=== PATIENT | male | born 1980 ===

== ENCOUNTER 2023-06-29 12:55 | Outpatient (AMB) | payer OTHER, SELFPAY ==
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
[2023-06-29 13:00] VITALS: BP 138/88; PULSE 110; O2SAT 98; BMI 42.6
== END 2023-06-29 13:48 | disposition home or self-care (01) ==
PROVIDERS: PCP Nurse Practitioner Family; Visit Provider Nurse Practitioner Family
DX: S32.009A Unspecified fracture of unspecified lumbar vertebra, initial encounter for closed fracture (principal); S30.811A Abrasion of abdominal wall, initial encounter; K66.1 Hemoperitoneum; S22.39XA Fracture of one rib, unspecified side, initial encounter for closed fracture; V86.6 Passenger of special all-terrain or other off-road motor vehicle injured in nontraffic accident
CPT/HCPCS: 99213

== ENCOUNTER 2023-07-27 08:19 | Outpatient (AMB) | payer OTHER, SELFPAY ==
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
[2023-07-27 09:33] VITALS: BP 130/80; PULSE 93; TEMP 36.6; O2SAT 97; BMI 42.0
== END 2023-07-27 10:06 | disposition home or self-care (01) ==
PROVIDERS: PCP Nurse Practitioner Family; Visit Provider Internal Medicine
DX: M54.6 Pain in thoracic spine (principal)
CPT/HCPCS: 99213

== ENCOUNTER 2023-08-11 15:30 | Outpatient (AMB) | payer OTHER, SELFPAY ==
[2023-08-11 15:36] VITALS: BP 142/80; PULSE 97; O2SAT 98; BMI 42.2
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
[2023-08-11 16:02] VITALS: BP 134/84
[2023-08-11 16:06] VITALS: BP 128/80
== END 2023-08-11 16:58 | disposition home or self-care (01) ==
PROVIDERS: PCP Nurse Practitioner Family; Visit Provider Nurse Practitioner Family
DX: S22.39XA Fracture of one rib, unspecified side, initial encounter for closed fracture (principal); K66.1 Hemoperitoneum; S32.009A Unspecified fracture of unspecified lumbar vertebra, initial encounter for closed fracture; S30.811A Abrasion of abdominal wall, initial encounter
CPT/HCPCS: 99213

== ENCOUNTER 2023-10-28 08:28 | Outpatient (REF) | payer OTHER, SELFPAY ==
[2023-10-28 11:15] LABS: MANUAL DIFF FLAG NO
[2023-10-28 11:17] LABS: Appearance Urine Turbid; Color Urine Dark Yellow; Glucose Urine UA Negative (Negative); Leukocyte Esterase Urine Negative (Negative); Nitrite Urine Negative (Negative); PH 5.5 (5.0-9.0); Specific Gravity - Urine 1.025 (1.005-1.025); Urine Blood Negative (Negative); Urine Ketones Trace mg/dL (Negative); Urine Protein Negative (Neg-Trace)
[2023-10-28 12:15] LABS: Alanine Aminotransferase 36 U/L (0-40); Albumin Level 4.2 g/dL (3.5-5.0); Alkaline Phosphatase 110 U/L (39-117); Anion Gap 13 (12-20); Aspartate Amino Transferase 18 U/L (5-37); Bilirubin Total 0.4 mg/dL (0.0-1.0); Blood Urea Nitrogen 12 mg/dL (9-16); Calcium 9.3 mg/dL (8.4-10.2); Carbon Dioxide 27 mmol/L (22-29); Chloride 103 mmol/L (96-108); Cholesterol 180 mg/dL (<200); Estimated Glomerular Filt Rate > 60; Glucose Fasting 186 mg/dL (60-99); HDL Cholesterol 31 mg/dL (>40); LDL Cholesterol Calculated 111 mg/dL (<100); Potassium 4.1 mmol/L (3.3-5.1); Sodium 139 mmol/L (135-145); Total Protein 7.5 g/dL (6.5-8.0); Triglycerides 191 mg/dL (<150)
[2023-10-28 12:24] LABS: TSH reflex Free T4 1.43 uIU/mL (0.32-4.0)
[2023-10-28 15:24] LABS: Basophils Percent Auto 0.6 % (0-2); Eosinophils Absolute Auto 0.1 X10*3/uL (0.0-0.4); Hematocrit 42.7 % (42.0-52.0); Hemoglobin 14.8 g/dl (14.0-18.0); Imm Gran Abs Auto 0.03 X10*3/uL (0.00-0.03); Imm Gran Pct Auto 0.5 % (0.0-0.4); Lymphocytes Absolute Auto 2.3 X10*3/uL (1.2-4.9); Lymphocytes Percent Auto 34.3 % (20-40); Mean Corpuscular HGB Conc 34.7 g/dl (31.0-36.0); Mean Corpuscular Hemoglobin 29.6 pg (27.0-33.0); Mean Corpuscular Volume 85.4 fL (80.0-98.0); Mean Platelet Volume 10.7 fL (9.4-12.4); Monocytes Absolute Auto 0.5 X10*3/uL (0.1-1.2); Monocytes Percent Auto 7.8 % (2-11); Neutrophils Absolute Auto 3.6 x10*3/uL (2.0-8.3); Neutrophils Percent Auto 54.8 % (45-73); Platelet Count 219 X10*3/uL (160-400); Red Cell Distribution Width 12.4 % (11.0-16.0); White Blood Count 6.6 X10*3/uL (4.8-10.8)
== END 2023-10-28 08:29 | disposition home or self-care (01) ==
LOC: HO.HMGCLDS 08:28
PROVIDERS: PCP Nurse Practitioner Family; Visit Provider Nurse Practitioner Family
DX: K66.1 Hemoperitoneum (principal); S32.009A Unspecified fracture of unspecified lumbar vertebra, initial encounter for closed fracture; S30.811A Abrasion of abdominal wall, initial encounter
CPT/HCPCS: 36415; 80053; 80061; 81003; 84443; 85025

== ENCOUNTER 2023-10-29 07:52 | Outpatient (AMB) | payer OTHER, SELFPAY ==
[2023-10-29 07:55] VITALS: BP 120/78; PULSE 96; O2SAT 95; BMI 42.2
--- NOTE | 2023-10-29 07:55 | MHC.PC.OV ---
Vital Signs 10/29/23 07:55 Height 6 ft 1 in Weight 320 lb BMI 42.2 BP 120/78 Blood Pressure Location Lt brachial Position Sitting Pulse 96 Pulse Source Pulse Oximeter Pulse Oximetry (%) 95 Oxygen Delivery Method Room Air Intake Visit Reasons: physical Intake Note: Pt is here today for his PE Allergies No Known Allergies Allergy (Verified 10/29/23 07:55) Medication List - Last Reconciled 10/29/23 by SAUD Grossman amlodipine 10 mg PO DAILY 90 days betamethasone dipropionate 0.05% 1 appl topical DAILY PRN 30 days cyclobenzaprine 10 mg PO BID PRN 10 days irbesartan 150 mg PO DAILY 90 days meloxicam 15 mg PO DAILY PRN 30 days metformin ER 500 mg PO BID 30 days Tobacco use date assessed: 10/29/23 Dental Screening Dental Screen Date: 10/29/23 Did you have a dental visit in the last 12 months?: Yes Did you have a dental problem in the last 6 months where you did not have access to dental care?: Yes Was dental information given to patient?: Patient has dentist HPI physical HPI Details Pt is here for a PE. Labs were already performed. Pt is a newly-diagnosed diabetic, on an ARB. A1C in office today is 8.6. Due for microalbumin, will order. Denies polyuria, polydipsia, and neuropathy. Pt denies any signs and symptoms of hypoglycemia and does know how to correct it. Will start metformin ER 500mg. Will send meter and supplies, educated on bid testing. Will refer to nurse navigator. Due for eye exam, will refer. Refuses all vaccinations. [facility] Medical History Psoriasis Surgical History No pertinent past surgical history Family History Father No problems noted. Mother No problems noted. Social History Housing: House Patient Tobacco Use Status: Former Tobacco user e-Cigarette/Vaping Use: Currently Using Second Hand Smoke Exposure: No service: No Current occupational status: employed Cognitive needs: No Hearing needs: No Vision needs: No Questionnaire PHQ-9 Over the last 2 weeks, how often have you been bothered by any of the following problems? 1. Little interest or pleasure in doing things: not at all 2. Feeling down, depressed, or hopeless: not at all 3. Trouble falling or staying asleep, or sleeping too much: not at all 4. Feeling tired or having little energy: not at all 5. Poor appetite or overeating: not at all 6. Feeling bad about yourself - or that you are a failure or have let yourself or your family down: not at all 7. Trouble concentrating on things, such as reading the newspaper or watching television: not at all 8. Moving or speaking so slowly that other people could have noticed. Or the opposite - being so fidgety or restless that you have been moving around a lot more than usual: not at all 9. Thoughts that you would be better off or of hurting yourself in some way: not at all Total score: 0 Source: Developed by Drs. Gold Brandon, Kristen Blake, Yanick Awan and colleagues, with an educational ronal from [employer]. Thrive Questionnaire Date Thrive assessed: 10/29/23 I am a: Patient What is your living situation today?: I have a steady place to live Within the past 12 months, did the food you bought not last and you didn't have the money to get more?: Never true Within the past 12 months, did you worry whether your food would run out before you got money to buy more?: Never true Do you have trouble paying for medicines?: No Do you have trouble getting transportation to medical appointments?: No Do you have trouble paying your heating and electricity bill?: No Do you have trouble taking care of your child, family member or friend?: No Do you have trouble with day-to-day activities such as bathing, preparing meals, shopping, managing finances, etc.?: No Are you currently unemployed and looking for a job?: No Are you interested in more education?: No THRIVE Score: 0 AUDIT C Alcohol Use Questionnaire (AUDIT-C) 1. How often do you have a drink containing alcohol?: Never Total Score: 0 KINZA-7 AMB Questionnaire KINZA-7 Date KINZA - 7 assessed: 10/29/23 Feeling nervous, anxious, or on edge: 0 = Not at all Not being able to stop or control worryin = Not at all Worrying too much about different things: 0 = Not at all Trouble relaxin = Not at all Being so restless that it is hard to sit still: 0 = Not at all Becoming easily annoyed or irritable: 0 = Not at all Feeling afraid as if something awful might happen: 0 = Not at all Total KINZA-7 score (0-4 normal; 5-9 mild; 10-14 moderate; 15-21 severe): 0 Source: Developed by Drs. Gold Brandon, Kristen Blake, Yanick Awan and colleagues, with an educational ronal from [employer]. Review of Systems Const Denies chills and Denies fever(s) Eyes Denies blurry vision ENT Denies vertigo, Denies dizziness and Denies sore throat Card Denies chest pain at rest, Denies chest pain with activity, Denies diaphoresis, Denies dyspnea and Denies dyspnea on exertion Resp Denies cough, Denies dyspnea, Denies dyspnea on exertion and Denies wheezing GI Denies abdominal pain, Denies melena, Denies hematochezia, Denies constipation, Denies diarrhea and Denies loose stools Denies hematuria Musc Denies numbness and Denies tingling Skin/Breast Denies lesions Neuro Denies vertigo, Denies dizziness, Denies numbness and Denies tingling Psych Denies anxiety, Denies depression, Denies homicidal ideation, Denies suicidal ideation and Denies other (substance abuse) Aller/Immun Denies wheezing Physical exam (Primary Care) Vital Signs: Last Vital Signs Pulse 96 10/29/23 07:55 BP 120/78 10/29/23 07:55 Pulse Ox 95 10/29/23 07:55 Oxygen Delivery Method Room Air 10/29/23 07:55 BMI result Body Mass Index 42.2 Tobacco/Smoking Status: Tobacco use Status Tobacco use date assessed 10/29/23 10/29/23 07:56 Patient Tobacco Use Status Former Tobacco user 10/29/23 08:03 e-Cigarette/Vaping Use Currently Using 10/29/23 08:03 Thrive Assessment: Date of Thrive Assessment Date Thrive assessed 10/29/23 10/29/23 08:06 Const General: cooperative Nutritional Appearance: obese morbidly obese Orientation/consciousness: patient oriented x3 HENMT Head: Yes normal to inspection, Yes normocephalic and Yes atraumatic Ears: TM's normal bilaterally Eyes General: appearance normal, both eyes and all related structures Alignment and Position: alignment normal and position normal Neck Neck: Yes normal visual inspection and Yes no lymphadenopathy Thyroid: Thyroid normal Resp Effort & Inspection: normal respiratory effort Auscultation: clear to auscultation bilaterally Cardio Rate: regular rate Rhythm: regular rhythm Heart sounds: S1 normal heart sound present, S2 normal heart sound present and no murmurs GI Palpation (GI): Soft to palpation and nontender Auscultation: normal bowel sounds Male General Exam: Yes normal external exam Penis: normal penis Scrotum: scrotum normal, testes descended bilaterally and no inguinal hernias Testes: no testicular mass Skin Rashes: no rashes Neuro General: patient oriented x3, moves all extremities, no focal motor deficits and deep tendon reflexes 2+ bilaterally Romberg Test: Negative Extrem Other: bilat feet: + sensation with use of monofilament Psych Appearance: grossly normal Mental Status: mental status grossly normal Speech and movement: Normal speech and movement present Affect: normal affect Attitude: cooperative Thought process: Normal thought process present Thought content: Normal thought content present Insight: Good insight present (Psych) Judgement: Good judgement present (Psych) Results AMB Hemoglobin A1c AMB Hemoglobin A1c 8.6 % Last Edit by Jeanna Liao CMA on 10/29/23 08:35 Assessment and Plan Assessment & Plan (1) Newly diagnosed diabetes: Code(s): E11.9 - Type 2 diabetes mellitus without complications Plan: Microalbumin ordered, referred to nurse navigtor and ophthalmology, metformin started (2) Encounter for routine adult physical exam with abnormal findings: Code(s): Z00.01 - Encounter for general adult medical examination with abnormal findings Plan The patient agreed to the use of a adjunct faculty for medical terminology for this encounter. Scribed for SAUD Kong by Jenniffer Nicholson adjunct faculty for medical terminology, on 10/29/2023 at 08:20 EST. Orders: Orders AMB Hemoglobin A1c Today Z13.9 - Encounter for screening, unspecified Microalbumin, Random (w Creat) Today E11.9 - Type 2 diabetes mellitus without complications Referrals Nurse Navigator Referral E11.9 - Type 2 diabetes mellitus without complications Ophthalmology Referral E11.9 - Type 2 diabetes mellitus without complications Medications: New metformin ER 500 mg PO BID 30 days 60 tabs 3RF calcipotriene 0.005% rub in gently and completely 1 appl topical DAILY 120 grams 0RF metformin ER 500 mg PO BID 30 days 60 tabs 3RF Refilled betamethasone dipropionate 0.05% 1 appl topical DAILY 30 days PRN 45 grams 4RF skin irritation Coding Level of Care Code Est Pt Prev Care 40-64y(76774) Diagnoses Newly diagnosed diabetes E11.9 Encounter for routine adult physical exam with abnormal findings Z00.01
== END 2023-10-29 08:46 | disposition home or self-care (01) ==
PROVIDERS: PCP Nurse Practitioner Family; Visit Provider Nurse Practitioner Family
DX: Z00.01 Encounter for general adult medical examination with abnormal findings (principal); E11.9 Type 2 diabetes mellitus without complications
CPT/HCPCS: 83036; 99213; 99396

== ENCOUNTER 2024-02-18 08:21 | Outpatient (AMB) | payer OTHER, SELFPAY ==
--- NOTE | 2024-02-18 08:24 | MHC.PC.OV ---
Vital Signs 02/18/24 08:29 Height 6 ft 1 in Weight 298 lb BMI 39.3 BP 120/82 Blood Pressure Location Rt brachial Position Sitting Pulse 76 Pulse Source Pulse Oximeter Pulse Oximetry (%) 96 Oxygen Delivery Method Room Air Intake Visit Reasons: 3.5 month follow up Allergies No Known Allergies Allergy (Verified 02/18/24 08:30) Medication List - Last Reconciled 02/18/24 by SAUD Grossman Alcohol Wipes (alcohol swabs) 1 pad topical .BID testing NS amlodipine 10 mg PO DAILY 90 days betamethasone dipropionate 0.05% 1 appl topical DAILY PRN 30 days blood sugar diagnostic (FreeStyle Lite Strips) Test blood sugar twice a day blood-glucose meter (FreeStyle Lite Meter kit) As directed calcipotriene 0.005% 1 appl topical DAILY cyclobenzaprine 10 mg PO BID PRN 10 days irbesartan 150 mg PO DAILY 90 days lancets (FreeStyle Lancets) Test blood sugar twice a day meloxicam 15 mg PO DAILY PRN 30 days metformin ER 500 mg PO DAILY Tobacco use date assessed: 10/29/23 Dental Screening Dental Screen Date: 10/29/23 HPI 3.5 month follow up HPI Details Pt is a diabetic, on an ARB. A1C in office today is 6.1. Due for microalbumin, will order. Denies polyuria, polydipsia, and neuropathy. Pt denies any signs and symptoms of hypoglycemia and does know how to correct it. Pt has been working on his diet. Pt c/o pain to his right achilles region (distal aspect). Will order XR. [facility] Medical History Psoriasis Surgical History No pertinent past surgical history Family History Father No problems noted. Mother No problems noted. Social History Household Members: Spouse Housing: House Patient Tobacco Use Status: Current everyday Tobacco user Tobacco use type: Smokeless Tobacco e-Cigarette/Vaping Use: Currently Using Second Hand Smoke Exposure: No service: No Current occupational status: employed Cognitive needs: No Hearing needs: No Vision needs: No Questionnaire PHQ-9 Over the last 2 weeks, how often have you been bothered by any of the following problems? 55065 - PHQ-9 Billing: Patient declined-do not bill Source: Developed by Drs. Gold Brandon, Yanick Montanez and colleagues, with an educational ronal from [employer]. Thrive Questionnaire Date Thrive assessed: 10/29/23 KINZA-7 AMB Questionnaire KINZA-7 Date KINZA - 7 assessed: 10/29/23 Source: Developed by Drs. Gold Brandon, Kristen Blake, Yanick Awan and colleagues, with an educational ronal from [employer]. KINZA-7 Assessment Billing KINZA-7 Assessment Tool: pt declined-do not bill Review of Systems Const Reports as per HPI Physical exam (Primary Care) Vital Signs: Last Vital Signs Pulse 76 02/18/24 08:29 BP 120/82 02/18/24 08:29 Pulse Ox 96 02/18/24 08:29 Oxygen Delivery Method Room Air 02/18/24 08:29 BMI result Body Mass Index 39.3 Tobacco/Smoking Status: Tobacco use Status Tobacco use date assessed 10/29/23 02/18/24 08:29 Patient Tobacco Use Status Current everyday Tobacco 02/18/24 08:29 Tobacco use type Smokeless Tobacco 02/18/24 08:29 e-Cigarette/Vaping Use Currently Using 02/18/24 08:29 Thrive Assessment: Date of Thrive Assessment Date Thrive assessed 10/29/23 02/18/24 08:29 Const General: cooperative Nutritional Appearance: obese Orientation/consciousness: patient oriented x3 Resp Effort & Inspection: normal respiratory effort Auscultation: clear to auscultation bilaterally Cardio Rate: regular rate Rhythm: regular rhythm Heart sounds: S1 normal heart sound present and S2 normal heart sound present Neuro General: patient oriented x3 Extrem Other: bilat feet: + sensation with use of monofilament, feet intact, right distal achilles region slightly tender with palpation, no erythema, slight bulging Psych Appearance: grossly normal Mental Status: mental status grossly normal Speech and movement: Normal speech and movement present Affect: normal affect Attitude: cooperative Thought process: Normal thought process present Thought content: Normal thought content present Insight: Good insight present (Psych) Judgement: Good judgement present (Psych) Results AMB Hemoglobin A1c AMB Hemoglobin A1c 6.1 % Last Edit by ANTELMO Felix on 02/18/24 08:52 Results Reviewed Results Reviewed: Laboratory Last Values Hgb A1c (Clinic) 6.1 % (4.0-6.0) H 02/18/24 08:38 Assessment and Plan Assessment & Plan (1) Diabetes: Code(s): E11.9 - Type 2 diabetes mellitus without complications Plan: Labs ordered (2) Pain in Achilles tendon: Code(s): M76.60 - Achilles tendinitis, unspecified leg Plan: XR ordered Plan The patient agreed to the use of a medical genetics director for this encounter. Scribed for SAUD Kong by Jenniffer Nicholson medical genetics director, on 02/18/2024 at 08:45 EST. Orders: Orders AMB Hemoglobin A1c Today Z13.9 - Encounter for screening, unspecified TSH reflex Free T4 Today E11.9 - Type 2 diabetes mellitus without complications UA CC w/rflx Micro + Cult Today E11.9 - Type 2 diabetes mellitus without complications Microalbumin, Random (w Creat) Today E11.9 - Type 2 diabetes mellitus without complications Complete Blood Count Auto Diff Today E11.9 - Type 2 diabetes mellitus without complications Comprehensive [place]. Panel Fast Today E11.9 - Type 2 diabetes mellitus without complications Lipid Panel Today E11.9 - Type 2 diabetes mellitus without complications XR calcaneus RT min 2V Today M76.60 - Achilles tendinitis, unspecified leg Coding Level of Care Code Est Pt Level 3 (50859) Diagnoses Diabetes E11.9 Pain in Achilles tendon M76.60
[2024-02-18 08:29] VITALS: BP 120/82; PULSE 76; O2SAT 96; BMI 39.3
== END 2024-02-18 09:07 | disposition home or self-care (01) ==
PROVIDERS: PCP Nurse Practitioner Family; Visit Provider Nurse Practitioner Family
DX: E11.9 Type 2 diabetes mellitus without complications (principal); M76.60 Achilles tendinitis, unspecified leg; Z13.9 Encounter for screening, unspecified
CPT/HCPCS: 83036; 99213

== ENCOUNTER 2024-02-18 08:58 | Outpatient (REF) | payer OTHER, SELFPAY ==
--- NOTE | ~2024-02-18 | XR_ITS ---
EXAMINATION: XR CALCANEUS, RIGHT CLINICAL INFORMATION: Achilles tendinitis of. COMPARISON: None available. TECHNIQUE: Lateral and axial views of the right calcaneus were obtained. FINDINGS: There is a prominent moderate calcaneal spur. There is an adjacent area of ossification measuring up to 7 mm craniocaudal and 3.3 mm AP with some adjacent calcification. This is in the region of the distal Achilles tendon. There is soft tissue prominence in this area. Remaining bones joints and soft tissues are unremarkable. XR/XR calcaneus RT min 2V IMPRESSION: 1. Prominent calcaneal spur. 2. Soft tissue prominence in the region of the distal Achilles tendon with adjacent calcification. This could reflect Achilles tendinitis with without associated avulsive type fracture of the calcaneal spur with possible tearing of the tendon. If felt clinically necessary consider further evaluation characterization with MRI. 3. No acute abnormality.
== END 2024-02-18 08:59 | disposition home or self-care (01) ==
LOC: HO.HMGCX 08:58
PROVIDERS: PCP Nurse Practitioner Family; Visit Provider Nurse Practitioner Family
DX: M76.61 Achilles tendinitis, right leg (principal)
CPT/HCPCS: 73650

== ENCOUNTER 2024-04-06 16:36 | Outpatient (REF) | payer OTHER, SELFPAY ==
--- NOTE | ~2024-04-06 | MR_ITS ---
EXAMINATION: MR FOOT WITHOUT CONTRAST, RIGHT CLINICAL INFORMATION: Achilles tendinitis. COMPARISON: Radiographs 02/18/2024. TECHNIQUE: MRI without contrast is performed on the right hindfoot. FINDINGS: Mild chronic Achilles tendinopathy. There is a large enthesophyte with marrow edema and a small chronic ossification posterior to the distal tendon. There is a small partial tear of the tendon at the lateral aspect of the calcaneal insertion measuring 1.2 cm medial to lateral, up to 4 mm in AP and superior to inferior dimension. Reactive marrow edema and mild retrocalcaneal bursitis. Surrounding soft tissue edema/peritendinitis. The posterior tibialis tendon, peroneal tendons, flexor and extensor tendons appear intact. There is a 2.3 cm elongated fluid collection/ganglion between the FHL and FDL tendons proximal to the knot of Isidro adjacent to the medial plantar nerve. Ankle ligaments appear intact. No ankle joint effusion. There is a small focus of subchondral marrow edema at the lateral talar dome. Plantar fascia is intact. MR/MR foot RT wo con IMPRESSION: 1. Mild chronic Achilles tendinopathy with a small partial tear at the lateral aspect of the calcaneal insertion. There is a large enthesophyte with reactive marrow edema and mild retrocalcaneal bursitis. 2. There is a 2.3 cm ganglion between the FHL and FDL tendons beneath the sustentaculum talus. 3. Small focus of subchondral marrow edema at the lateral talar dome. No ankle joint effusion.
== END 2024-04-06 16:37 | disposition home or self-care (01) ==
LOC: HO.MRI 16:36
PROVIDERS: PCP Nurse Practitioner Family; Visit Provider Nurse Practitioner Family
DX: M76.61 Achilles tendinitis, right leg (principal); R93.89 Abnormal findings on diagnostic imaging of other specified body structures
CPT/HCPCS: 73718

== ENCOUNTER 2024-08-15 07:52 | Outpatient (AMB) | payer OTHER, SELFPAY ==
[2024-08-15 08:04] VITALS: BP 132/80; PULSE 78; O2SAT 98; BMI 39.4
--- NOTE | 2024-08-15 08:04 | MHC.PC.OV ---
Vital Signs 08/15/24 08:04 Height 6 ft 1 in Weight 299 lb BMI 39.4 BP 132/80 Blood Pressure Location Rt brachial Position Sitting Pulse 78 Pulse Source Pulse Oximeter Pulse Oximetry (%) 98 Intake Visit Reasons: 6 mon f/u DM Intake Note: pt is here for DM [employer] Required: No Allergies No Known Allergies Allergy (Verified 08/15/24 09:02) Medication List - Last Reconciled 08/15/24 by LESLIE Grossman Alcohol Wipes (alcohol swabs) 1 pad topical .BID testing NS amlodipine 10 mg PO DAILY 90 days betamethasone dipropionate 0.05% 1 appl topical DAILY PRN 30 days blood sugar diagnostic (FreeStyle Lite Strips) Test blood sugar twice a day blood-glucose meter (FreeStyle Lite Meter kit) As directed calcipotriene 0.005% 1 appl topical DAILY cyclobenzaprine 10 mg PO BID PRN 10 days irbesartan 150 mg PO DAILY 90 days lancets (FreeStyle Lancets) Test blood sugar twice a day meloxicam 15 mg PO DAILY PRN 90 days metformin ER 500 mg PO DAILY Tobacco use date assessed: 10/29/23 Dental Screening Dental Screen Date: 10/29/23 HPI 6 mon f/u DM HPI Details Pt is a diabetic, on an ARB. A1C in office today is 6.7. Due for microalbumin, will order. Denies polyuria, polydipsia, and neuropathy. Pt denies any signs and symptoms of hypoglycemia and does know how to correct it. Eye exam is not up to date, will resubmit this. Encouraged pt to have labs drawn. Refuses vaccines. [facility] Medical History Psoriasis Surgical History No pertinent past surgical history Family History Father No problems noted. Mother No problems noted. Social History Household Members: Spouse Housing: House Patient Tobacco Use Status: Current everyday Tobacco user Tobacco use type: Smokeless Tobacco e-Cigarette/Vaping Use: Currently Using Second Hand Smoke Exposure: No service: No Current occupational status: employed Cognitive needs: No Hearing needs: No Vision needs: No Questionnaire PHQ-9 Over the last 2 weeks, how often have you been bothered by any of the following problems? 1. Little interest or pleasure in doing things: not at all 3. Trouble falling or staying asleep, or sleeping too much: not at all 5. Poor appetite or overeating: not at all 7. Trouble concentrating on things, such as reading the newspaper or watching television: not at all 9. Thoughts that you would be better off or of hurting yourself in some way: not at all Depression Screening Interpretation: Negative Depression Screening Done: Yes Source: Developed by Drs. Gold Brandon, Kristen Blake, Yanick Awan and colleagues, with an educational ronal from [employer]. Thrive Questionnaire Date Thrive assessed: 08/12/24 I am a: Patient What is your living situation today?: I choose not to answer this question Within the past 12 months, did the food you bought not last and you didn't have the money to get more?: I choose not to answer this question Within the past 12 months, did you worry whether your food would run out before you got money to buy more?: I choose not to answer this question Do you have trouble paying for medicines?: I choose not to answer this question Do you have trouble getting transportation to medical appointments?: I choose not to answer this question Do you have trouble paying your heating and electricity bill?: I choose not to answer this question Do you have trouble taking care of your child, family member or friend?: I choose not to answer this question Do you have trouble with day-to-day activities such as bathing, preparing meals, shopping, managing finances, etc.?: I choose not to answer this question Are you currently unemployed and looking for a job?: Yes Are you interested in more education?: No Please select the resources that you would like help with: None Currently or been in a relationship where the following occur: No concerns reported THRIVE Score: 0 AUDIT C Alcohol Use Questionnaire (AUDIT-C) 1. How often do you have a drink containing alcohol?: Never Total Score: 0 KINZA-7 AMB Questionnaire KINZA-7 Date KINZA - 7 assessed: 10/29/23 Feeling nervous, anxious, or on edge: 0 = Not at all Not being able to stop or control worryin = Not at all Worrying too much about different things: 0 = Not at all Trouble relaxin = Not at all Being so restless that it is hard to sit still: 0 = Not at all Becoming easily annoyed or irritable: 0 = Not at all Feeling afraid as if something awful might happen: 0 = Not at all Total KINZA-7 score (0-4 normal; 5-9 mild; 10-14 moderate; 15-21 severe): 0 Source: Developed by Drs. Gold Brandon, Kristen Blake, Yanick Awan and colleagues, with an educational ronal from [employer]. KINZA-7 Assessment Billing KINZA-7 Assessment Tool: KINZA-7 Assessment 87863 Review of Systems Const Reports as per HPI Physical exam (Primary Care) Vital Signs: Last Vital Signs Pulse 78 08/15/24 08:04 BP 132/80 08/15/24 08:04 Pulse Ox 98 08/15/24 08:04 BMI result Body Mass Index 39.4 Tobacco/Smoking Status: Tobacco use Status Tobacco use date assessed 10/29/23 08/15/24 08:05 Patient Tobacco Use Status Current everyday Tobacco 08/15/24 08:05 Tobacco use type Smokeless Tobacco 08/15/24 08:05 e-Cigarette/Vaping Use Currently Using 08/15/24 08:05 Depression Screening Interpretation: Negative Thrive Assessment: Date of Thrive Assessment Date Thrive assessed 08/12/24 08/15/24 08:05 Currently or been in a relationship where the following occur: No concerns reported Const General: cooperative Nutritional Appearance: obese Orientation/consciousness: patient oriented x3 Resp Effort & Inspection: normal respiratory effort Auscultation: clear to auscultation bilaterally Cardio Rate: regular rate Rhythm: regular rhythm Heart sounds: S1 normal heart sound present and S2 normal heart sound present Neuro General: patient oriented x3 Extrem Other: bilat feet: + sensation with use of monofilament, feet intact Psych Appearance: grossly normal Mental Status: mental status grossly normal Speech and movement: Normal speech and movement present Affect: normal affect Attitude: cooperative Thought process: Normal thought process present Thought content: Normal thought content present Insight: Good insight present (Psych) Judgement: Good judgement present (Psych) Results AMB Hemoglobin A1c AMB Hemoglobin A1c 6.7 % Last Edit by Merlin Noguera CMA on 08/15/24 08:24 Results Reviewed Results Reviewed: Laboratory Last Values Hgb A1c (Clinic) 6.7 % (4.0-6.0) H 08/15/24 08:23 Coding Level of Care Code Est Pt Level 3 (86372) Diagnoses Diabetes E11.9 Additional Codes KINZA-7 Assessment Billing - KINZA-7 Assessment Tool: KINZA-7 Assessment 44092 ([id number]) Assessment & Plan Assessment & Plan (1) Diabetes: Code(s): E11.9 - Type 2 diabetes mellitus without complications Category: Medical Plan: cont same routine, though tweak diet a little more Plan The patient agreed to the use of a medical assistant prn for this encounter. Scribed for SAUD Kong by Jenniffer Nicholson medical assistant prn, on 08/15/2024 at 08:20 EST. Orders: Orders AMB Hemoglobin A1c Today E11.9 - Type 2 diabetes mellitus without complications
== END 2024-08-15 09:17 | disposition home or self-care (01) ==
PROVIDERS: PCP Nurse Practitioner Family; Visit Provider Nurse Practitioner Family
DX: E11.9 Type 2 diabetes mellitus without complications (principal)

== ENCOUNTER → 2024-08-15 07:52 | Outpatient (BNVA) | payer OTHER, SELFPAY | PROVIDERS: PCP Nurse Practitioner Family; Visit Provider Nurse Practitioner Family ==

== ENCOUNTER 2024-08-15 08:38 | Outpatient (REF) | payer OTHER, SELFPAY ==
[2024-08-15 10:33] LABS: Anion Gap 9 (12-20); Carbon Dioxide 26 mmol/L (22-29); Chloride 108 mmol/L (96-108); Potassium 4.4 mmol/L (3.3-5.1); Sodium 139 mmol/L (135-145)
== END 2024-08-15 08:39 | disposition home or self-care (01) ==
LOC: HO.HMGCLDS 08:38
PROVIDERS: PCP Nurse Practitioner Family; Visit Provider Orthopaedic Surgery Foot and Ankle Surgery
DX: Z01.89 Encounter for other specified special examinations (principal); Z13.1 Encounter for screening for diabetes mellitus
CPT/HCPCS: 36415; 80051; 83036; 96127

== ENCOUNTER → 2024-08-15 09:36 | Outpatient (REF) | payer OTHER, SELFPAY ==
--- NOTE | 2024-08-15 09:47 | ECG_ITS ---
Test Reason : PRE OP Blood Pressure : / mmHG Vent. Rate : 075 BPM Atrial Rate : 075 BPM P-R Int : 162 ms QRS Dur : 098 ms QT Int : 386 ms P-R-T Axes : 072 039 031 degrees QTc Int : 431 ms Normal sinus rhythm Normal ECG No previous ECGs available Referred By: Paul Caceres Electronically Signed By:Marcos Sanchez
== END ==
LOC: HO.CARD 09:36
PROVIDERS: PCP Nurse Practitioner Family; Visit Provider Orthopaedic Surgery Foot and Ankle Surgery
DX: Z01.89 Encounter for other specified special examinations (principal)
CPT/HCPCS: 93005

== ENCOUNTER → 2024-08-15 09:47 | Outpatient (BNV) | payer OTHER, SELFPAY | PROVIDERS: PCP Nurse Practitioner Family; Visit Provider Internal Medicine Cardiovascular Disease | DX: E11.9 Type 2 diabetes mellitus without complications (principal) | CPT/HCPCS: 93010 ==

== ENCOUNTER → 2024-10-21 09:37 | Outpatient (BNVA) | payer SELFPAY | PROVIDERS: PCP Nurse Practitioner Family; Visit Provider Physician Assistant | DX: Z02.79 Encounter for issue of other medical certificate (principal) ==

== ENCOUNTER 2025-01-26 14:09 | Outpatient (REF) | payer OTHER, SELFPAY ==
--- NOTE | ~2025-01-26 | XR_ITS ---
CLINICAL HISTORY: M54.2 - Cervicalgia 3 views cervical spine Comparison: None Findings: Normal vertebral body alignment. No acute fractures or dislocation. Minimal degenerative change at C5-C6. No prevertebral soft tissue swelling. IMPRESSION: No acute findings. This document has been electronically signed by: Giulia Sparks MD on 01/30/2025 14:46:20
--- OUTSIDE RECORDS SUMMARY | 2025-01-26 17:37 | XMS_ITS | Continuity of Care Document ---
Author Organization [facility] Address [address] [place] [address] Phone [phone] Social History Type Date Description Comments Sex Unknown Medical Devices Description No Information Available Encounters Description No Information Available Assessments Description No Information Available Plan of Treatment No Information Available Functional Status Description No Information Available Mental Status Description No Information Available Referrals Description No Information Available
== END 2025-01-26 14:10 | disposition home or self-care (01) ==
LOC: HO.HMGCX 14:09
PROVIDERS: PCP Nurse Practitioner Family; Visit Provider Nurse Practitioner Family
DX: M54.2 Cervicalgia (principal); E11.9 Type 2 diabetes mellitus without complications; L91.8 Other hypertrophic disorders of the skin
CPT/HCPCS: 72040; 83036; 96127

== ENCOUNTER 2025-01-26 14:09 | Outpatient (AMB) | payer OTHER, SELFPAY ==
--- NOTE | 2025-01-26 14:22 | A.OFFPC_ITS ---
Vital Signs 01/26/25 14:23 Height 6 ft 1 in Weight 321 lb BMI 42.3 BP 136/84 Blood Pressure Location Rt brachial Position Sitting Pulse 91 Pulse Source Pulse Oximeter Pulse Oximetry (%) 95 Oxygen Delivery Method Room Air Intake Visit Reasons: migraine Allergies No Known Allergies Allergy (Verified 01/26/25 15:03) Medication List - Last Reconciled 01/26/25 by Jered Julian [employer]- Alcohol Wipes (alcohol swabs) 1 pad topical .BID testing NS amlodipine 10 mg PO DAILY 90 days betamethasone dipropionate 0.05% 1 appl topical DAILY PRN 30 days blood sugar diagnostic (FreeStyle Lite Strips) Test blood sugar twice a day blood-glucose meter (FreeStyle Lite Meter kit) As directed calcipotriene 0.005% 1 appl topical DAILY diclofenac sodium 75 mg PO BID PRN 30 days irbesartan 150 mg PO DAILY 90 days lancets (FreeStyle Lancets) Test blood sugar twice a day tirzepatide (Mounjaro) 2.5 mg (0.5 mL) subcut QWEEK tizanidine 4 mg PO BID PRN 30 days Tobacco use date assessed: 01/26/25 Dental Screening Dental Screen Date: 01/26/25 Did you have a dental visit in the last 12 months?: Yes Did you have a dental problem in the last 6 months where you did not have access to dental care?: No Was dental information given to patient?: Patient has dentist HPI migraine HPI Details Chief Complaint Follow-up for diabetes management and onset of neck pain. History of Present Illness The patient is a 44-year-old male presenting for a follow-up on his Type 2 Diabetes Mellitus and to discuss recent neck pain. He reports the onset of neck pain about one week ago, initially triggered during driving. This pain has disrupted his sleep; however, he notes some improvement today. There are no associated symptoms such as fever, chills, blurred vision, nausea, or vomiting. His diabetes management is notable for an A1c of 7.3 and a poor tolerance to metformin. Lastly, multiple skin tags to bilat axillas. Reports bleeding and chaffing causing constant irritation. WIll refer to derm for removal Social History Health Maintenance - Hemoglobin A1c of 7.3% Review of Systems - Neurological: Denies fever, chills, bl urred vision, nausea, and vomiting. Physical Exam General: Cooperative, healthy appearing, comfortable, no acute distress and well developed, obese Orientation: Patient oriented x3 Limitations: No limitations Head: Normal to inspection Ears: Hearing grossly normal bilaterally Nose: Normal external nose present Face and sinus: Normal facial exam Eyes: Appearance normal, both eyes and all related structures Neck: Normal visual inspection and Yes full ROM, some discomfort to upper cervical spine radiating to occipital region, no real tenderness with palpation. Neg spurlings Respiratory: Normal respiratory effort and able to speak in complete sentences. Clear to auscultation bilaterally Cardiovascular: Regular rate and rhythm. Normal S1 and S2 GI: Normal to inspection. Soft to palpation and nontender Skin: No rashes or lesions noted Neuro: Patient oriented x3, Negative Kernig's and Brudzinski's sign Extremities: Normal to inspection, feet intact with positive sensation using monofilament Results - Labs: Hemoglobin A1c of 7.3% Plan For the management of Type 2 Diabetes Mellitus, I will start the patient on a GLP-1 receptor agonist, Mounjaro, given the suboptimal control with metformin and known intolerance. This should enhance his glycemic control with additional benefits on weight management. Regarding his neck pain, I intend to manage it with anti-inflammatories and muscle relaxants to improve comfort and sleep. A cervical X-ray will be conducted to investigate the pain's etiology. Given the negative findings on neurological examination, immediate serious concerns are mitigated, but I will follow up to assess effectiveness and determine any further action. Discussion Notes I discussed with the patient the current state of his diabetes management, including the A1c result of 7.3%, and the decision to introduce Mounjaro given metformin intolerance, highlighting its benefits and potential weight loss. I elaborated on the approach to his neck pain, including the introduction of symptomatic relief through medication and the logistics of obtaining a cervical spine X-ray for further assessment. We covered the implications of the negative Spurling's, Kernig's, and Brudzinski's tests and the anticipated follow-up arrangements. Patient Instructions - Begin taking the prescribed GLP-1 agon ist, Mounjaro. - Take the anti-inflammatory and muscle relaxer as directed for neck pain relief. - Await instructions for your cervical s pine X-ray appointment. - Follow up as directed for reassessment of diabetes management and neck pain. - Report any new symptoms or adverse marky ctions to medications promptly. [facility] Medical History Achilles tendinosis of right ankle Psoriasis Surgical History H/O Achilles tendon repair No pertinent past surgical history Family History Father No problems noted. Mother No problems noted. Social History Household Members: Spouse Housing: House Patient Tobacco Use Status: Current everyday Tobacco user Tobacco use type: Smokeless Tobacco e-Cigarette/Vaping Use: Currently Using Second Hand Smoke Exposure: No service: No Current occupational status: employed Cognitive needs: No Hearing needs: No Vision needs: No Questionnaire PHQ-9 Over the last 2 weeks, how often have you been bothered by any of the following problems? 1. Little interest or pleasure in doing things: not at all 2. Feeling down, depressed, or hopeless: not at all 3. Trouble falling or staying asleep, or sleeping too much: not at all 4. Feeling tired or having little energy: not at all 5. Poor appetite or overeating: not at all 6. Feeling bad about yourself - or that you are a failure or have let yourself or your family down: not at all 7. Trouble concentrating on things, such as reading the newspaper or watching television: not at all 8. Moving or speaking so slowly that other people could have noticed. Or the opposite - being so fidgety or restless that you have been moving around a lot more than usual: not at all 9. Thoughts that you would be better off or of hurting yourself in some way: not at all Total score: 0 Depression Screening Interpretation: Negative Depression Screening Done: Yes 77515 - PHQ-9 Billing: Yes Source: Developed by Drs. Gold Brandon, Kristen Blake, Yanick Awan and colleagues, with an educational ronal from [employer]. Thrive Questionnaire Date Thrive assessed: 01/26/25 I am a: Patient What is your living situation today?: I have a steady place to live Within the past 12 months, did the food you bought not last and you didn't have the money to get more?: Never true Within the past 12 months, did you worry whether your food would run out before you got money to buy more?: Never true Do you have trouble paying for medicines?: No Do you have trouble getting transportation to medical appointments?: No Do you have trouble paying your heating and electricity bill?: No Do you have trouble taking care of your child, family member or friend?: No Do you have trouble with day-to-day activities such as bathing, preparing meals, shopping, managing finances, etc.?: No Are you currently unemployed and looking for a job?: Yes Are you interested in more education?: No Please select the resources that you would like help with: None Currently or been in a relationship where the following occur: No concerns reported THRIVE Score: 0 AUDIT C Alcohol Use Questionnaire (AUDIT-C) 1. How often do you have a drink containing alcohol?: Never 3. How often do you have six or more drinks on one occasion?: Never Total Score: 0 Score Reviewed/Action Taken: Yes KINZA-7 AMB Questionnaire KINZA-7 Date KINZA - 7 assessed: 01/26/25 Feeling nervous, anxious, or on edge: 0 = Not at all Not being able to stop or control worryin = Not at all Worrying too much about different things: 0 = Not at all Trouble relaxin = Not at all Being so restless that it is hard to sit still: 0 = Not at all Becoming easily annoyed or irritable: 0 = Not at all Feeling afraid as if something awful might happen: 0 = Not at all Total KINZA-7 score (0-4 normal; 5-9 mild; 10-14 moderate; 15-21 severe): 0 Source: Developed by Drs. Gold Brandon, Kristen Blake, Yanick Awan and colleagues, with an educational ronal from [employer]. KINZA-7 Assessment Billing KINZA-7 Assessment Tool: KINZA-7 Assessment 57706 Physical exam (Primary Care) Vital Signs: Last Vital Signs Pulse 91 01/26/25 14:23 BP 136/84 01/26/25 14:23 Pulse Ox 95 04/24/25 14:23 Oxygen Delivery Method Room Air 01/26/25 14:23 BMI result Body Mass Index 42.3 Tobacco/Smoking Status: Tobacco use Status Tobacco use date assessed 01/26/25 01/26/25 14:26 Patient Tobacco Use Status Current everyday Tobacco 01/26/25 14:25 Tobacco use type Smokeless Tobacco 01/26/25 14:25 e-Cigarette/Vaping Use Currently Using 01/26/25 14:25 PHQ-9: PHQ-9 Score PHQ-9: Total score 0 01/26/25 14:26 Depression Screening Interpretation: Negative Thrive Assessment: Date of Thrive Assessment Date Thrive assessed 01/26/25 01/26/25 14:26 Currently or been in a relationship where the following occur: No concerns reported Results AMB Hemoglobin A1c AMB Hemoglobin A1c 7.4 % Last Edit by Evy Friedman CMA on 01/26/25 14:41 Results Reviewed Results Reviewed: Laboratory Last Values Hgb A1c (Clinic) 7.4 % (4.0-6.0) H 01/26/25 14:40 Coding Level of Care Code Est Pt Level 3 (48986) Diagnoses Cervical pain (neck) M54.2 Skin tags, multiple acquired L91.8 Diabetes E11.9 Additional Codes KINZA-7 Assessment Billing - KINZA-7 Assessment Tool: KINZA-7 Assessment 49640 ([id number]) PHQ-9 - 52032 - PHQ-9 Billing: Yes ([id number]) Assessment & Plan Assessment & Plan (1) Cervical pain (neck): Code(s): M54.2 - Cervicalgia Category: Medical (2) Skin tags, multiple acquired: Code(s): L91.8 - Other hypertrophic disorders of the skin Category: Medical (3) Diabetes: Code(s): E11.9 - Type 2 diabetes mellitus without complications Category: Medical Plan . Orders: Orders XR cervical spine 2V Today M54.2 - Cervicalgia Complete Blood Count Auto Diff Today E11.9 - Type 2 diabetes mellitus without complications UA CC w/rflx Micro + Cult Today E11.9 - Type 2 diabetes mellitus without complications AMB Hemoglobin A1c Today E11.9 - Type 2 diabetes mellitus without complications Comprehensive [place]. Panel Fast Today E11.9 - Type 2 diabetes mellitus without complications TSH reflex Free T4 Today E11.9 - Type 2 diabetes mellitus without complications Lipid Panel Today E11.9 - Type 2 diabetes mellitus without complications Microalbumin, Random (w Creat) Today E11.9 - Type 2 diabetes mellitus without complications Referrals Dermatology Referral L91.8 - Other hypertrophic disorders of the skin Medications: New tirzepatide (Mounjaro) for 4 weeks 2.5 mg (0.5 mL) subcut QWEEK 2 mL 0RF tizanidine 4 mg PO BID 30 days PRN 60 caps 0RF muscle spasticity diclofenac sodium 75 mg PO BID 30 days PRN 60 tabs 0RF pain Discontinued cyclobenzaprine Discontinued Reason: Doctor's Order 10 mg PO BID 10 days PRN 20 tabs 0RF muscle spasm metformin ER Discontinued Reason: Patient Refused 500 mg PO DAILY 90 tabs 1RF meloxicam Discontinued Reason: Doctor's Order 15 mg PO DAILY 90 days PRN 90 tabs 0RF pain
[2025-01-26 14:23] VITALS: BP 136/84; PULSE 91; O2SAT 95; BMI 42.3
--- OUTSIDE RECORDS SUMMARY | 2025-01-26 16:38 | XMS_ITS | Continuity of Care Document ---
Author Organization [facility] Address [address] [place] [address] Phone [phone] Social History Type Date Description Comments Sex Unknown Medical Devices Description No Information Available Encounters Description No Information Available Assessments Description No Information Available Plan of Treatment No Information Available Functional Status Description No Information Available Mental Status Description No Information Available Referrals Description No Information Available
== END 2025-01-26 15:14 | disposition home or self-care (01) ==
LOC: HO.HMCC 14:09
PROVIDERS: PCP Nurse Practitioner Family; Visit Provider Nurse Practitioner Family
DX: M54.2 Cervicalgia (principal); L91.8 Other hypertrophic disorders of the skin; E11.9 Type 2 diabetes mellitus without complications

== ENCOUNTER → 2025-01-26 15:01 | Outpatient (BNV) | payer OTHER, SELFPAY | PROVIDERS: PCP Nurse Practitioner Family; Visit Provider Radiology Diagnostic Radiology | DX: M54.2 Cervicalgia (principal) | CPT/HCPCS: 72040 ==

== ENCOUNTER 2025-02-07 12:29 | Emergency (ER) | payer OTHER, SELFPAY ==
--- NOTE | ~2025-02-07 | CT_ITS ---
EXAMINATION: CT ANGIOGRAM HEAD AND NECK CLINICAL INFORMATION: Headache x3 weeks. Blurry vision. COMPARISON: Noncontrast head CT earlier same day at 1:10 PM. TECHNIQUE: Noncontrast axial imaging of the head was performed. This was followed by test bolus sequences and head and neck intravenous bolus administration 70 mL of Omnipaque 350. Helical imaging was performed in the axial plane from the aortic arch to the skull vertex. The data was processed at the mechatronics technologist's workstation for generation of MIP sequences. Angled MIPs and volume rendered reformatted images were also generated at an offline 3D workstation. Stenoses are assessed in accordance with NASCET criteria unless otherwise indicated. This CT examination was performed using dose optimization techniques as appropriate, variously including the following: *Automated exposure control *Adjustment of mA and/or kV according to patient size (this includes techniques or standardized protocols for targeted exams where dose is matched to indication/reason for exam; i.e. extremities or head) *Use of iterative reconstruction technique FINDINGS: NONCONTRAST HEAD CT: There is no evidence of intracranial hemorrhage or extra-axial fluid collection. There is no mass effect, or edema. No CT evidence of acute territorial infarct. Ventricles, sulci, and cisterns are normal in size and configuration for patient age. No hydrocephalus. No midline shift. No significant white matter abnormalities. Globes and orbital contents image normally. No extracranial soft tissue abnormalities. The paranasal sinuses, mastoid air cells, and tympanic cavities are normally aerated. No suspicious bony abnormalities. NECK CTA: -AORTIC ARCH: Normal in caliber. Mild atheromatous calcification. Three-vessel branching pattern. -GREAT VESSEL ORIGINS: Widely patent. No stenosis. -RIGHT COMMON CAROTID ARTERY: Normal in course and caliber to the level of the bifurcation. -CERVICAL RIGHT INTERNAL CAROTID ARTERY: Normal opacification without focal stenosis or occlusion. -LEFT COMMON CAROTID ARTERY: Normal in course and caliber to the level of the bifurcation. -CERVICAL LEFT INTERNAL CAROTID ARTERY: Normal opacification without focal stenosis or occlusion. -CERVICAL RIGHT VERTEBRAL ARTERY: Codominant. Normal in course and caliber into the skull base. -CERVICAL LEFT VERTEBRAL ARTERY: Normal in course and caliber into the skull base. OTHER, SOFT TISSUES: -No lymphadenopathy or mass. No abnormal fluid collection or soft tissue swelling. -Normal thyroid. -Imaged superior mediastinal structures normal. -Imaged lung apices clear. CTA OF THE BRAIN: -INTRACRANIAL INTERNAL CAROTID ARTERIES: No focal stenosis or occlusion. -RIGHT ANTERIOR CEREBRAL ARTERY: Normal A1 segment. Azygos A2/A3 segments. Normal arborization of the distal segments. -LEFT ANTERIOR CEREBRAL ARTERY: Normal A1 segment.. Normal arborization of the distal segments. -ANTERIOR COMMUNICATING ARTERY: Normal. -RIGHT MIDDLE CEREBRAL ARTERY: Normal M1 segment of the MCA without focal stenosis or occlusion. Normal arborization of the distal segments. -LEFT MIDDLE CEREBRAL ARTERY: Normal M1 segment of the MCA without focal stenosis or occlusion. Normal arborization of the distal segments. -RIGHT VERTEBRAL ARTERY V4: Normal in course and caliber. -LEFT VERTEBRAL ARTERY V4: Normal in course and caliber. -BASILAR ARTERY: Normal without focal stenosis or occlusion. Normal appearance of the proximal superior cerebellar arteries. Normal basilar tip. -RIGHT POSTERIOR CEREBRAL ARTERY: Normal P1 segment. Normal opacification of the distal CONTAINERS SALES REPRESENTATIVE segments. -LEFT POSTERIOR CEREBRAL ARTERY: Normal P1 segment. Normal opacification of the distal CONTAINERS SALES REPRESENTATIVE segments. -POSTERIOR COMMUNICATING ARTERIES: Right is well seen. The left is diminutive but present. Normal opacification of the superior sagittal, straight, transverse, and sigmoid sinuses. No venous thrombosis. No space-occupying hemorrhage or definite evolving infarct. CT/CT angio head neck IMPRESSION: NONCONTRAST HEAD CT: 1. No intracranial hemorrhage or mass effect. No CT evidence of acute territorial infarct. CTA NECK: 1. No evidence of significant stenosis, occlusion, dissection, or aneurysm of the major cervical arterial vasculature. CTA HEAD: 1. No evidence of significant stenosis, occlusion, dissection, or aneurysm of the major intracranial arterial vasculature. 2. Patent major cortical and dural venous sinuses. Electronically signed by: Abrahan Fuchs MD 02/07/2025 04:42 PM EDT
--- NOTE | ~2025-02-07 | CT_ITS ---
EXAMINATION: CT HEAD WITHOUT IV CONTRAST HISTORY: headache, blurry vision. TECHNIQUE: Unenhanced helical CT of the head was performed per standard departmental protocol. Coronal and sagittal reformats of the head were also evaluated. One or more of the following techniques was used for dose reduction: Automated exposure control, adjustment of the mA and/or kV according to patient size, use of iterative reconstruction technique. DLP: 949 mGy-cm COMPARISON: There are no prior studies for comparison. FINDINGS: BRAIN: The brain parenchyma is unremarkable. There is normal bullock/white differentiation. The ventricular system is normal in size and configuration. There is no mass effect or midline shift. No intra- or extra-axial fluid collections are identified. SINUSES: The visualized paranasal sinuses are clear. The mastoid air cells and middle ear cavities are well pneumatized. ORBITS: The visualized orbits are unremarkable. BONES/SOFT TISSUES: The extracranial soft tissues are unremarkable. The calvarium is intact. No suspicious lytic or sclerotic lesions. CT/CT head/brain wo IV con IMPRESSION: Unremarkable unenhanced head CT. Electronically signed by: Gold Welch MD 02/07/2025 01:36 PM EDT
--- NOTE | ~2025-02-07 | CT_ITS ---
EXAMINATION: CT CERVICAL SPINE WITHOUT IV CONTRAST HISTORY: posterior neck pain. TECHNIQUE: Helical CT of the cervical spine was performed per standard departmental protocol. Coronal and sagittal reformatted images were also evaluated. One or more of the following techniques was used for dose reduction: Automated exposure control, adjustment of the mA and/or kV according to patient size, use of iterative reconstruction technique. DLP: 718 mGy-cm COMPARISON: There are no prior studies for comparison. FINDINGS: CERVICAL SPINE: Osseous mineralization is normal. The vertebral bodies maintain normal height and alignment without evidence of fracture or subluxation. There is mild degenerative disc disease at the C5-6 and C6-7 levels with anterior osteophyte formation. Evaluation for disc pathology is limited by lack of intrathecal contrast material. BRAIN: The visualized portion of the brain is unremarkable. SINUSES: The visualized paranasal sinuses, mastoid air cells and middle ear cavities are unremarkable. LUNG APICES: The visualized lung apices are clear. SOFT TISSUES: The visualized paraspinal soft tissues are unremarkable. CT/CT cervical spine wo IV con IMPRESSION: No evidence of fracture or malalignment of the cervical spine. Electronically signed by: Gold Welch MD 02/07/2025 01:40 PM EDT
[2025-02-07 12:45] VITALS: BP 167/109; PULSE 92; RESP 20; TEMP 36.9; O2SAT 98; BMI 42.0
--- NOTE | 2025-02-07 12:53 | ECG_ITS ---
Test Reason : HEADACHE Blood Pressure : */* mmHG Vent. Rate : 80 BPM Atrial Rate : 80 BPM P-R Int : 162 ms QRS Dur : 98 ms QT Int : 386 ms P-R-T Axes : 71 50 36 degrees QTcB Int : 445 ms Normal sinus rhythm Normal ECG When compared with ECG of 15-Aug-2024 09:46, No significant change was found Referred By: Humberto Ulloa Electronically Signed By: ABBI DUMONT
--- NOTE | 2025-02-07 12:54 | ED_ITS ---
HPI - General Adult General Chief complaint: Headache Stated complaint: Headache, neck stiffness Time Seen by Provider: 02/07/25 13:57 History of Present Illness HPI narrative: Seen by Dr. Mccormick Related Data Previous Rx's ?Medication ?Instructions ?Recorded betamethasone dipropionate 0.05 % 1 appl topical DAILY PRN skin 10/29/23 topical ointment irritation 30 days #45 grams calcipotriene 0.005 % topical cream 1 appl topical DAILY #120 grams 10/29/23 Alcohol Wipes (alcohol swabs) 1 pad topical .BID testing #40 ea 11/18/23 blood sugar diagnostic (FreeStyle #200 ea 11/30/23 Lite Strips) blood-glucose meter (FreeStyle #1 ea 11/30/23 Lite Meter kit) lancets 28 gauge (FreeStyle #200 ea 11/30/23 Lancets) amlodipine 10 mg tablet 10 mg PO DAILY 90 days #90 tabs 12/18/24 irbesartan 150 mg tablet 150 mg PO DAILY 90 days #90 tabs 12/18/24 diclofenac sodium 75 mg 75 mg PO BID PRN pain 30 days #60 01/26/25 tablet,delayed release tabs cyclobenzaprine 10 mg tablet 10 mg PO BEDTIME PRN muscle spasm 02/01/25 20 days #20 tabs tirzepatide 2.5 mg/0.5 mL 2.5 mg (0.5 mL) subcut QWEEK #6 mL 02/06/25 subcutaneous pen injector (Gaetano) ibuprofen 400 mg tablet 400 mg PO Q6H PRN pain #20 tabs 02/07/25 ondansetron 4 mg disintegrating 4 mg PO TID PRN nausea and 02/07/25 tablet vomiting 5 days #10 tabs indomethacin 50 mg capsule 50 mg PO BID 30 days #60 caps 02/08/25 Allergies Allergy/AdvReac Type Severity Reaction Status Date / Time No Known Allergies Allergy Verified 02/07/25 12:49 [facility] Past Medical History Medical History Achilles tendinosis of right ankle Psoriasis Surgical History H/O Achilles tendon repair No pertinent past surgical history Family History Family History Father No problems noted. Mother No problems noted. Social History Social History Household Members: Spouse Housing: House Patient Tobacco Use Status: Current everyday Tobacco user Tobacco use type: Smokeless Tobacco e-Cigarette/Vaping Use: Currently Using Second Hand Smoke Exposure: No Advance Directives: No Advance Directives Information Provided: Yes service: No Current occupational status: employed Cognitive needs: No Hearing needs: No Vision needs: No Physical Exam ED Vital Signs: Vital Signs - 24 hr 02/07/25 12:45 Temperature 98.5 F Pulse Rate 92 Respiratory Rate 20 Blood Pressure 167/109 H Pulse Oximetry 98 Oxygen Delivery Method Room Air BMI result Body Mass Index 42.0 Course Course Course Narrative: RME: 44-year-old male presents to ED for 3 weeks of headache with pain behind both his eyes which again he had this morning. Patient also states posterior neck pain. Patient denies any nausea or vomiting. Patient states his blood pressure at night. Once again headache pressure behind both eyes. Patient denies any chest pain or shortness of breath. NIH score is 0. Negative for any neuro deficits. Head CT scan EKG labs ordered Medications Administered Discontinued Medications Generic Name Dose Route Start Last Admin Trade Name Venuq PRN Reason Stop Dose Admin Diphenhydramine HCl 25 mg 02/07/25 14:28 02/07/25 14:55 Diphenhydramine Hcl 50 Mg/Ml Vial IVPUSH 02/07/25 14:29 25 mg ONCE ONE Administration Sodium Chloride 1,000 mls @ 999 mls/hr 02/07/25 14:30 02/07/25 14:55 Ns IV 02/07/25 15:30 999 mls/hr .Q1H1M LASHONDA Administration Iohexol 70 ml 02/07/25 16:08 02/07/25 16:09 Iohexol 350 Mg/Ml 100 Ml Infus..Btl IV 02/07/25 16:09 70 ml ONCE ONE Administration Ketorolac Tromethamine 30 mg 02/07/25 14:28 02/07/25 14:55 Ketorolac Tromethamine 30 Mg/Ml Vial IVPUSH 02/07/25 14:29 30 mg ONCE ONE Administration Metoclopramide HCl 10 mg 02/07/25 14:28 02/07/25 14:54 Metoclopramide Hcl 10 Mg/2 Ml Vial IVPUSH 02/07/25 14:29 10 mg ONCE ONE Administration Medical Decision Making Lab Data 02/07/25 14:09 02/07/25 14:09 Labs: Lab Results 02/07/25 02/07/25 Range/Units 14:09 15:26 WBC 6.0 (4.8-10.8) X10*3/uL RBC 4.62 (4.60-5.80) X10*6/uL Hgb 13.9 L (14.0-18.0) g/dl Hct 39.2 L (42.0-52.0) % MCV 84.8 (80.0-98.0) fL MCH 30.1 (27.0-33.0) pg MCHC 35.5 (31.0-36.0) g/dl RDW 12.3 (11.0-16.0) % Plt Count 200 (160-400) X10*3/uL MPV 9.4 (9.4-12.4) fL Immature Gran % (Auto) 0.2 (0.0-0.4) % Neut % (Auto) 53.4 (45-73) % Lymph % (Auto) 34.4 (20-40) % [place] % (Auto) 9.0 (2-11) % Eos % (Auto) 2.5 (0-4) % Baso % (Auto) 0.5 (0-2) % Lymph # (Auto) 2.1 (1.2-4.9) X10*3/uL [place] # (Auto) 0.5 (0.1-1.2) X10*3/uL Eos # (Auto) 0.2 (0.0-0.4) X10*3/uL Baso # (Auto) 0.0 (0.0-0.2) X10*3/uL Abs Immat Gran (auto) 0.01 (0.00-0.03) X10*3/uL Absolute Neuts (auto) 3.2 (2.0-8.3) x10*3/uL Absolute Nucleated RBC 0.000 (0.0-0.012) X10*3/uL Nucleated RBC % (auto) 0.0 (0.0-0.2) /100WBC PT 11.5 (10.9-12.4) SEC INR 1.0 (0.9-1.1) APTT 30.0 (26.0-36.8) SEC Sodium 139 (135-145) mmol/L Potassium 4.0 (3.3-5.1) mmol/L Chloride 106 (96-108) mmol/L Carbon Dioxide 26 (22-29) mmol/L Anion Gap 11 L (12-20) BUN 16 (9-16) mg/dL Creatinine 1.01 (0.5-1.4) mg/dL Estim Creat Clear Calc 139.4 Estimated GFR > 60 Random Glucose 276 H (60-115) mg/dL Calcium 8.6 D (8.4-10.2) mg/dL Total Bilirubin 0.4 (0.0-1.0) mg/dL AST 27 (5-37) U/L ALT 45 H (0-40) U/L Alkaline Phosphatase 100 (39-117) U/L Troponin I High Sens < 2.7 (<3.5-35.0) ng/L Total Protein 6.8 (6.5-8.0) g/dL Albumin 3.9 (3.5-5.0) g/dL Lyme Screen IgG & IgM <0.90 index Lyme Progressive Test TNP Discharge Plan Discharge Clinical Impression: Headache, migraine Patient Disposition: Home, Self-Care Instructions: Migraine Headache (ED) Prescriptions: New ibuprofen 400 mg tablet 400 mg PO Q6H PRN (Reason: pain) Qty: 20 0RF ondansetron 4 mg tablet,disintegrating 4 mg PO TID PRN (Reason: nausea and vomiting) 5 Days Qty: 10 0RF No Action alcohol swabs [Alcohol Wipes] Pads, Medicated 1 pad topical .BID testing Qty: 40 0RF (DME) blood-glucose meter [FreeStyle Lite Meter] Kit See Rx Instructions .Route Qty: 1 0RF Rx Instructions: As directed (DME) FreeStyle Lite Strips Strip See Rx Instructions .Route Qty: 200 1RF Rx Instructions: Test blood sugar twice a day (DME) lancets [FreeStyle Lancets] 28 gauge misc See Rx Instructions .Route Qty: 200 1RF Rx Instructions: Test blood sugar twice a day irbesartan 150 mg tablet 150 mg PO DAILY 90 Days Qty: 90 1RF amlodipine 10 mg tablet 10 mg PO DAILY 90 Days Qty: 90 1RF cyclobenzaprine 10 mg tablet 10 mg PO BEDTIME PRN (Reason: muscle spasm) 20 Days Qty: 20 0RF Mounjaro 2.5 mg/0.5 mL pen injector 2.5 mg subcut QWEEK Qty: 6 0RF Rx Instructions: 90 day supply indomethacin 50 mg capsule 50 mg PO BID 30 Days Qty: 60 0RF Rx Instructions: administer with food or milk calcipotriene 0.005 % cream 1 appl topical DAILY Qty: 120 0RF Rx Instructions: rub in gently and completely betamethasone dipropionate 0.05 % ointment 1 appl topical DAILY PRN (Reason: skin irritation) 30 Days Qty: 45 4RF diclofenac sodium 75 mg tablet,delayed release (DR/EC) 75 mg PO BID PRN (Reason: pain) 30 Days Qty: 60 0RF Referrals: Jered Julian, [facility] [Primary Care Provider] - Interventions: ED Discharge Assessment Last Done: 02/07/25 17:20 Discharge Date/Time: 02/07/25 17:30 Print Language: Sudanese
[2025-02-07 14:15] LABS: MANUAL DIFF FLAG NO
[2025-02-07 14:16] LABS: Basophils Percent Auto 0.5 % (0-2); Eosinophils Absolute Auto 0.2 X10*3/uL (0.0-0.4); Eosinophils Percent Auto 2.5 % (0-4); Hematocrit 39.2 % (42.0-52.0); Hemoglobin 13.9 g/dl (14.0-18.0); Imm Gran Abs Auto 0.01 X10*3/uL (0.00-0.03); Imm Gran Pct Auto 0.2 % (0.0-0.4); Lymphocytes Absolute Auto 2.1 X10*3/uL (1.2-4.9); Lymphocytes Percent Auto 34.4 % (20-40); Mean Corpuscular HGB Conc 35.5 g/dl (31.0-36.0); Mean Corpuscular Hemoglobin 30.1 pg (27.0-33.0); Mean Corpuscular Volume 84.8 fL (80.0-98.0); Mean Platelet Volume 9.4 fL (9.4-12.4); Monocytes Absolute Auto 0.5 X10*3/uL (0.1-1.2); Neutrophils Absolute Auto 3.2 x10*3/uL (2.0-8.3); Neutrophils Percent Auto 53.4 % (45-73); Platelet Count 200 X10*3/uL (160-400); Red Blood Count 4.62 X10*6/uL (4.60-5.80); Red Cell Distribution Width 12.3 % (11.0-16.0)
[2025-02-07 14:24] LABS: Prothrombin Time 11.5 SEC (10.9-12.4)
--- NOTE | 2025-02-07 14:30 | ED.HA ---
HPI - Headache General Chief Complaint: Headache Stated Complaint: Headache, neck stiffness Time Seen by Provider: 02/07/25 13:57 History of Present Illness HPI Narrative: Patient is a 44-year-old male presents today with having headache on and off for the last few weeks. Worse this morning since about 10:00. Patient reports no focal weakness. There is no fever. Patient works outside and inside. Patient denies any chest pain any shortness breath diaphoresis. Any focal weakness. Patient is from home. No history of migraine in the past. No travel history. Also complaining of some neck pain today. There is no history of migraine. No sudden deaths in the family. Related Data Previous Rx's ?Medication ?Instructions ?Recorded betamethasone dipropionate 0.05 % 1 appl topical DAILY PRN skin 10/29/23 topical ointment irritation 30 days #45 grams calcipotriene 0.005 % topical cream 1 appl topical DAILY #120 grams 10/29/23 Alcohol Wipes (alcohol swabs) 1 pad topical .BID testing #40 ea 11/18/23 blood sugar diagnostic (FreeStyle #200 ea 11/30/23 Lite Strips) blood-glucose meter (FreeStyle #1 ea 11/30/23 Lite Meter kit) lancets 28 gauge (FreeStyle #200 ea 11/30/23 Lancets) amlodipine 10 mg tablet 10 mg PO DAILY 90 days #90 tabs 12/18/24 irbesartan 150 mg tablet 150 mg PO DAILY 90 days #90 tabs 12/18/24 diclofenac sodium 75 mg 75 mg PO BID PRN pain 30 days #60 01/26/25 tablet,delayed release tabs cyclobenzaprine 10 mg tablet 10 mg PO BEDTIME PRN muscle spasm 02/01/25 20 days #20 tabs tirzepatide 2.5 mg/0.5 mL 2.5 mg (0.5 mL) subcut QWEEK #6 mL 02/06/25 subcutaneous pen injector (Gaetano) ibuprofen 400 mg tablet 400 mg PO Q6H PRN pain #20 tabs 02/07/25 ondansetron 4 mg disintegrating 4 mg PO TID PRN nausea and 02/07/25 tablet vomiting 5 days #10 tabs Allergies Allergy/AdvReac Type Severity Reaction Status Date / Time No Known Allergies Allergy Verified 02/07/25 12:49 Review of Systems Review of Systems: Positive headache Yes all other systems are reviewed and are negative [facility] Past Medical History Attestation statement: The following information was validated with the patient. Medical History Achilles tendinosis of right ankle Psoriasis Surgical History H/O Achilles tendon repair No pertinent past surgical history Family History Family History Father No problems noted. Mother No problems noted. Social History Social History Household Members: Spouse Housing: House Patient Tobacco Use Status: Current everyday Tobacco user Tobacco use type: Smokeless Tobacco e-Cigarette/Vaping Use: Currently Using Second Hand Smoke Exposure: No Advance Directives: No Advance Directives Information Provided: Yes service: No Current occupational status: employed Cognitive needs: No Hearing needs: No Vision needs: No Physical Exam Vital Signs: Vital Signs: Last Vital Signs Temp 98.5 F 02/07/25 12:45 Pulse 92 02/07/25 12:45 Resp 20 02/07/25 12:45 BP 167/109 H 02/07/25 12:45 Pulse Ox 98 02/07/25 12:45 O2 Del Method Room Air 02/07/25 12:45 BMI result Body Mass Index 42.0 Appearance: Alert. Oriented X3. No acute distress. Eyes: Pupils equal, round and reactive to light. ENT: Pharynx normal. Neck: Normal inspection. Neck supple. No lymph nodes noted. No crepitus CVS: Normal heart rate and rhythm. Pulses normal. Normal S1 and S2 Respiratory: No respiratory distress. Breath sounds normal. No Wheezing. No rales Abdomen: Soft and nontender. No rigidity. No distention. good BS x4 Skin: Skin warm and dry. Normal skin color. Normal skin turgor. Extremities: No lower extremity edema. Neurovascular intact to all extremities. No Lacerations. No Rash Neuro: Oriented X 3. No motor deficit. No sensory deficit. Moving all extermities. No slurred speech Medications Administered Discontinued Medications Generic Name Dose Route Start Last Admin Trade Name Freq PRN Reason Stop Dose Admin Diphenhydramine HCl 25 mg 02/07/25 14:28 02/07/25 14:55 Diphenhydramine Hcl 50 Mg/Ml Vial IVPUSH 02/07/25 14:29 25 mg ONCE ONE Administration Sodium Chloride 1,000 mls @ 999 mls/hr 02/07/25 14:30 02/07/25 14:55 Ns IV 02/07/25 15:30 999 mls/hr .Q1H1M LASHONDA Administration Iohexol 70 ml 02/07/25 16:08 02/07/25 16:09 Iohexol 350 Mg/Ml 100 Ml Infus..Btl IV 02/07/25 16:09 70 ml ONCE ONE Administration Ketorolac Tromethamine 30 mg 02/07/25 14:28 02/07/25 14:55 Ketorolac Tromethamine 30 Mg/Ml Vial IVPUSH 02/07/25 14:29 30 mg ONCE ONE Administration Metoclopramide HCl 10 mg 02/07/25 14:28 02/07/25 14:54 Metoclopramide Hcl 10 Mg/2 Ml Vial IVPUSH 02/07/25 14:29 10 mg ONCE ONE Administration Medical Decision Making Medical Decision Making MDM Narrative: Well-appearing no acute distress patient has headache that is been ongoing for weeks. But getting much worse this morning at 10:00. CT scan of the head by my interpretation was grossly negative for any acute evidence of bleeding. CT scan of the C-spine by my interpretation showed no acute fracture. A CTA of the head and neck was ordered to rule out the possibility of an aneurysm. Medication for migraine was given including a dose of Reglan Toradol IV fluids Benadryl. Will monitor carefully. Patient is intra-ocular pressure is 18 on the right 18 on the left there is no evidence for elevated IOP. Given migraine treatment with Reglan Benadryl Toradol with good results. Patient is sleeping comfortably. For 4:13 CTA of the head and neck is pending. 16:37. Patient's symptom improved dramatically. Headache is now 3/10. In no acute distress. If CTA is negative will discharge home. 16:48 patient's CTA of the head was grossly negative. In no distress. Headache gone. Will discharge home. No evidence for aneurysm. No evidence for intracranial bleed. Patient comfortable. History not consistent with meningitis. Differential Diagnosis Differential Diagnoses: The differential diagnosis associated with the presentation includes Intracranial bleed, aneurysm, meningitis, tension headache Admission/Observation Consideration of admission/observation: Escalation of care including admission/observation considered Lab Data MDM Lab Attestation statement: I reviewed the patient's lab results. 02/07/25 14:09 02/07/25 14:09 Labs: Lab Results 02/07/25 Range/Units 14:09 WBC 6.0 (4.8-10.8) X10*3/uL RBC 4.62 (4.60-5.80) X10*6/uL Hgb 13.9 L (14.0-18.0) g/dl Hct 39.2 L (42.0-52.0) % MCV 84.8 (80.0-98.0) fL MCH 30.1 (27.0-33.0) pg MCHC 35.5 (31.0-36.0) g/dl RDW 12.3 (11.0-16.0) % Plt Count 200 (160-400) X10*3/uL MPV 9.4 (9.4-12.4) fL Immature Gran % (Auto) 0.2 (0.0-0.4) % Neut % (Auto) 53.4 (45-73) % Lymph % (Auto) 34.4 (20-40) % [place] % (Auto) 9.0 (2-11) % Eos % (Auto) 2.5 (0-4) % Baso % (Auto) 0.5 (0-2) % Lymph # (Auto) 2.1 (1.2-4.9) X10*3/uL [place] # (Auto) 0.5 (0.1-1.2) X10*3/uL Eos # (Auto) 0.2 (0.0-0.4) X10*3/uL Baso # (Auto) 0.0 (0.0-0.2) X10*3/uL Abs Immat Gran (auto) 0.01 (0.00-0.03) X10*3/uL Absolute Neuts (auto) 3.2 (2.0-8.3) x10*3/uL Absolute Nucleated RBC 0.000 (0.0-0.012) X10*3/uL Nucleated RBC % (auto) 0.0 (0.0-0.2) /100WBC PT 11.5 (10.9-12.4) SEC INR 1.0 (0.9-1.1) APTT 30.0 (26.0-36.8) SEC Sodium 139 (135-145) mmol/L Potassium 4.0 (3.3-5.1) mmol/L Chloride 106 (96-108) mmol/L Carbon Dioxide 26 (22-29) mmol/L Anion Gap 11 L (12-20) BUN 16 (9-16) mg/dL Creatinine 1.01 (0.5-1.4) mg/dL Estim Creat Clear Calc 139.4 Estimated GFR > 60 Random Glucose 276 H (60-115) mg/dL Calcium 8.6 D (8.4-10.2) mg/dL Total Bilirubin 0.4 (0.0-1.0) mg/dL AST 27 (5-37) U/L ALT 45 H (0-40) U/L Troponin I High Sens < 2.7 (<3.5-35.0) ng/L Total Protein 6.8 (6.5-8.0) g/dL Albumin 3.9 (3.5-5.0) g/dL Independent Interpretation I performed an independent interpretation of an: EKG (Sinus heart rate is 80 IN QRS QTC normal no acute ST segment elevation) and CT Scan (CT head grossly negative for acute evidence of bleeding.) Radiology Impression Discussion of test interpretation with radiology: I have reviewed the radiologist's reading. External Record Review External record reviewed: Office record Chronic Conditions Patient?s care impacted by: Diabetes Diabetes Discharge Plan Discharge Clinical Impression: Headache, migraine Instructions: Migraine Headache (ED) Prescriptions: New ibuprofen 400 mg tablet 400 mg PO Q6H PRN (Reason: pain) Qty: 20 0RF ondansetron 4 mg tablet,disintegrating 4 mg PO TID PRN (Reason: nausea and vomiting) 5 Days Qty: 10 0RF No Action alcohol swabs [Alcohol Wipes] Pads, Medicated 1 pad topical .BID testing Qty: 40 0RF (DME) blood-glucose meter [FreeStyle Lite Meter] Kit See Rx Instructions .Route Qty: 1 0RF Rx Instructions: As directed (DME) FreeStyle Lite Strips Strip See Rx Instructions .Route Qty: 200 1RF Rx Instructions: Test blood sugar twice a day (DME) lancets [FreeStyle Lancets] 28 gauge misc See Rx Instructions .Route Qty: 200 1RF Rx Instructions: Test blood sugar twice a day irbesartan 150 mg tablet 150 mg PO DAILY 90 Days Qty: 90 1RF amlodipine 10 mg tablet 10 mg PO DAILY 90 Days Qty: 90 1RF cyclobenzaprine 10 mg tablet 10 mg PO BEDTIME PRN (Reason: muscle spasm) 20 Days Qty: 20 0RF Mounjaro 2.5 mg/0.5 mL pen injector 2.5 mg subcut QWEEK Qty: 6 0RF Rx Instructions: 90 day supply calcipotriene 0.005 % cream 1 appl topical DAILY Qty: 120 0RF Rx Instructions: rub in gently and completely betamethasone dipropionate 0.05 % ointment 1 appl topical DAILY PRN (Reason: skin irritation) 30 Days Qty: 45 4RF diclofenac sodium 75 mg tablet,delayed release (DR/EC) 75 mg PO BID PRN (Reason: pain) 30 Days Qty: 60 0RF Referrals: Jered Julian, PROF[employer] [Primary Care Provider] - Print Language: Nauruan
[2025-02-07 14:39] LABS: Troponin-I High Sensitivity < 2.7 ng/L (<3.5-35.0)
[2025-02-07 14:40] LABS: Alanine Aminotransferase 45 U/L (0-40); Albumin Level 3.9 g/dL (3.5-5.0); Anion Gap 11 (12-20); Aspartate Amino Transferase 27 U/L (5-37); Bilirubin Total 0.4 mg/dL (0.0-1.0); Blood Urea Nitrogen 16 mg/dL (9-16); Calcium 8.6 mg/dL (8.4-10.2); Carbon Dioxide 26 mmol/L (22-29); Chloride 106 mmol/L (96-108); Creatinine Clr Calc Pharmacy 139.4; Estimated Glomerular Filt Rate > 60; Glucose Random 276 mg/dL (60-115); Sodium 139 mmol/L (135-145); Total Protein 6.8 g/dL (6.5-8.0)
[2025-02-07] MEDS: Metoclopramide HCl 10 MG/2 ML VIAL IVPUSH (14:54)
[2025-02-07] MEDS: diphenhydrAMINE HCL 50 MG/ML VIAL 25 MG IVPUSH (14:55)
[2025-02-07] MEDS: 0.9 % Sodium Chloride 1,000 ML 999 ML IV (14:55)
[2025-02-07] MEDS: Ketorolac Tromethamine 30 MG/ML VIAL IVPUSH (14:55)
--- OUTSIDE RECORDS SUMMARY | 2025-02-07 15:04 | XMS_ITS | Data Portability ---
Author Organization [facility], [facility] [place] Address [address] [place] [address] Care Team Providers Care Handbook Writer Name Role Phone CICI SOFIA Primary Care Provider Assessment Encounter Date Assessment Date Assessment LastModified by Organization Details LastModified Time 05/17/2024 05/17/2024 ICD-10: Bilatera l insertional Achilles tendinopathy, traction enthesophyte, Austen deformity CHIEF COMPLAINT: Bilateral posterior heel/Achilles pain HISTORY OF PRESENT ILLNESS: Jhonny is a very pleasant 43-year-old gentleman who I previously saw in February 2020, or 4 years ago, regard to left insertional Achilles tendinitis. I have not seen him since then. He comes in today complaining of bilateral posterior heel/Achilles pain, right greater than left. He denies any known injury. He reports swelling of the right side. He is a former smoker and he now vapes. He works for [employer]. He previously had elevated blood glucose levels but does not take any medications for diabetes. He has lost weight. He has had an MRI of the right ankle and would like to discuss proceeding with right Achilles surgery. He has increased pain with activity. He has tried bracing as well as activity modification, rest, stretching and use of a night splint. Past family, medical, social history and review of systems has been reviewed, updated and is located in the patient? s chart. PHYSICAL EXAM: General: 6', 315 lbs, healthy appearing, in no acute distress Psych: alert and oriented x3, normal mood Skin: intact without ulceration or lesion, normal turgor Lymphatics: no lymphadenopathy Lungs: respirations unlabored Cardiac: heart rate regular, normal peripheral pulses Musculoskeletal: Gait is mildly antalgic on the affected side. On standing exam, alignment is normal. On seated exam, there is swelling and tenderness over the right posterior calcaneus at the Achilles insertion. There is prominence due to a Austen deformity and insertional traction enthesophyte. The Achilles is intact with normal Elliott test. The patient is distally neurovascularly intact. He has similar but less severe swelling tenderness about the left Achilles insertion. He has gastrocnemius contractures. X-RAYS: Five standing views of the bilateral feet and ankles were ordered, obtained and reviewed by me today at [facility], demonstrating calcification in the distal Achilles tendons near the insertion with a traction enthesophyte and Austen deformity. The calcific changes more notable on the right side. He did not bring his MRI images with him but the report reflects significant right insertional Achilles tendinopathy with calcific change and posterior calcaneal traction enthesophyte. IMPRESSION: Bilateral insertional Achilles tendinopathy, right greater than left PLAN: I had a long discussion with the patient regarding treatment options. I have urged him to stop using nicotine prior to surgery and he assures me he can quit cold turkey. The patient wishes to proceed with surgery, consisting of right insertional Achilles debridement and reconstruction with calcaneal exostectomy and possible gastrocnemius recession. He will be nonweightbearing in a splint for 2 weeks following surgery followed by 4 weeks of weightbearing immobilization in a tall CAM boot. He will likely be out of work for 2-3 months. I have explained that it can take 6 months for recovery. He will obtain his MRI disc and bring it to our office so I can review the images. Risks include, but are not limited to, wound healing problems, deep infection, persistent pain, stiffness, nerve injury/neuritis, need for further surgery. The expected postoperative course was outlined in detail. The patient understands the nature and magnitude of this surgery and wishes to proceed. All questions were answered. I have counseled the patient extensively about the importance of smoking cessation. I explained to the patient that smoking increases the risk of surgical complications, including wound infection, wound-healing problems, and delay in bony healing. [email or web address] Not available 08/30/2024 15:27:15 10/20/2024 10/20/2024 CHIEF COMPLAINT: Right Achilles HISTORY OF PRESENT ILLNESS: Jhonny is a 44-year-old gentleman who is 6 weeks status post right insertional Achilles reconstruction, calcaneal exostectomy and gastrocnemius recession. He is doing reasonably well. He has some burning incisional pain over the posterior heel. He also has developed some pain about his right calf for the past 3-4 days. He denies any fevers, chills, paresthesias or malaise. He has been weightbearing in the CAM boot. He works for the [employer] and remains out of work. Past family, medical, social history and review of systems has been reviewed and is located in the patient? s chart. PHYSICAL EXAM: Musculoskeletal: With removed, his incisions are well-healed. There is some swelling and tenderness about the right calf proximal to his gastrocnemius recession incision. There is appropriate incisional sensitivity over the posterior heel. There is no infectious change. His Achilles reconstruction is intact with normal Elliott test. He is distally neurovascularly intact. IMPRESSION: 6 weeks postop, doing well, concern for possible DVT PLAN: I discussed these findings with Jhonny. He may transition from the boot to a supportive shoe with Silipos Achilles sleeve. I am sending him for an ultrasound to rule out DVT of the right lower extremity. We will follow up this result. I have recommended a course of physical therapy. He was given a note keeping him out of work until follow-up. He will follow up with us in 7-8 weeks for reevaluation. All questions were answered. The patient is ambulatory, but has weakness and/or instability of their extremity which requires stabilization from this semi-rigid/rigid orthosis to improve their function. Verbal and written instructions for the use and application of this item were given. Patient was instructed that should the brace result in increased pain, decreased sensation, increased swelling or an overall worsening of their medical condition, to please contact our office immediately. [email or web address] Not available 10/20/2024 15:02:49 12/21/2024 12/21/2024 44-year-old male returns today in follow-up status post Right insertional Achilles reconstruction, calcaneal exostectomy, and gastroc recession performed on September 07, 2025 who is overall doing well. He may continue with his home exercise program for the time being he is working on single limb heel raises at this point. Provided him with a note that will allow him to return to work on January 13, 2025 which will be the start of his work season. He will follow-up in 3 months time for recheck, sooner if required [email or web address] Not available 12/21/2024 08:44:43 Plan of Treatment Reminders Order Date Submit Date Provider Last Modified By Organization Details Last Modified Time Details Appointments RECHECK 15 2024 08:30A M Jewel Kowalski PA-C Not available Not available Not available Lab None recorded. Referral physical therapist referral - RIGHT ACHILLES RECONSTRU CTION 09/07/242024 025 [email or web address] Not available 11/01/2024 07:05:39 Procedures None recorded. Surgeries repair, achilles tendon (SURG) 2023 024 [facility], [address], [place], [address], 08/18/2024 14:05:00 Imaging US, duplex, venous, lower extremity - RIGHT LOWER LEG Calf pain/swel ling--- r/o dvt 2024 025 [email or web address] [facility] [place], [address], [address], [place], [address], 11/01/2024 07:05:39 XR, ankle, 3 or more view - RM 107 --NEW 3V ANKLE WB, 2V FOOT WB 2023 024 [email or web address], [address], [address], [place], [address], 06/10/2024 09:18:08 XR, foot, 2 view 2023 024 [email or web address], [address], [address], [place], [address], 06/10/2024 09:18:08 Medication Orders None recorded. Patient TargetsNo targets recorded. Patient InstructionsNo instructions recorded. Reason for Referral Physical Therapist Referral for Postoperative visit RIGHT ACHILLES RECONSTRUCTION 09/07/24 Referring Physician: Paul Caceres, Orthopedic Surgery, Encounter Date: 10/20/2024 Results Created Date Observation Date Name Description Value Unit Range Abnormal Flag Note LastModifiedBy Organization Detail LastModifiedTime 05/17/20 24 05/17/2024 XR, ankle , 3 or more view [email or web address] ?Encry pted=s hAaTro YD8dLq bEUv6g %2BXZw aYqtaq 0bqfl% 2Fg9IQ a4ajBk vP9nXo QUaueC m3YtLR FvZlgJ JJ8mAn HZtai3 6m2184 AC0KoY n%2BMV KXeUC8 mr84%3 D INTERFACE [facility] [address], [place], [address], 05/17/2024 09:35:50 05/17/20 24 05/17/2024 XR, ankle , 3 or more view [email or web address] ?Encry pted=s hAaTro YD8dLq bEUv6g %2BXZw aYqtaq 0bqfl% 2Fg9IQ a4ajBk vP9nXo QUaueC m3YtLR FvZlgJ JJ8mAn HZtai3 7h3160 AC0KoY n%2BMV KXeUC8 mr84%3 D INTERFACE [facility] [address], [place], [address], 05/17/2024 09:35:52 05/17/20 24 05/17/2024 XR, foot, 2 view [email or web address] ?Encry pted=s hAaTro YD8dLq bEUv6g %2BXZw aYqtaq 0bqfl% 2Fg9IQ a4ajBk vP9nXo QUaueC m3YtLR FvZlgJ JJ8mAn HZtai3 7n0400 AC0KoY n%2BMV KreUC8 mr84%3 D INTERFACE [facility] [address], [place], [address], 05/17/2024 09:37:20 05/17/20 24 05/17/2024 XR, foot, 2 view [email or web address] ?Encry pted=s hAaTro YD8dLq bEUv6g %2BXZw aYqtaq 0bqfl% 2Fg9IQ a4ajBk vP9nXo QUaueC m3YtLR FvZlgJ JJ8mAn HZtai3 6y3861 AC0KoY n%2BMV KreUC8 mr84%3 D INTERFACE [facility] [address], [place], [address], 05/17/2024 09:37:22 08/15/20 24 08/15/2024 rhyth m strip , EKG* No observ ation record ed. [facility] [address], [place], [address], 08/16/2024 07:44:38 10/20/19 25 10/20/2024 US, duple x, venou s, lower extre mity No observ ation record ed. [place] [facility] [place] [address], [place], [address], 10/21/2024 11:06:38 Result Notes None recorded. Problems Name Problem SNOMED Code Status Onset Date Resolution Date Notes Provider Name and Address Organization Details Recorded Time Disorder of Achilles tendon 143134756 Active 025 Jewel Kowalski PA-C [address], [place], [address] , [facility] 08:02:20 Problem Notes None recorded. Procedures Surgical History None recorded. Imaging Results Imaging Date Name Status LastModified by [facility] Details LastModified Time 05/17/2024 XR, ankle, 3 or more view completed [facility]FACE [facility] [address], [place], [address], 05/17/2024 09:35:50 05/17/2024 XR, ankle, 3 or more view completed INTERFACE [facility] [address], [place], [address], 05/17/2024 09:35:52 05/17/2024 XR, foot, 2 view completed INTERFACE [facility] [address], [place], [address], 05/17/2024 09:37:20 05/17/2024 XR, foot, 2 view completed INTERFACE [facility] [address], [place], [address], 05/17/2024 09:37:22 08/15/2024 rhythm strip, EKG* completed [facility] [address], [place], [address], 08/16/2024 07:44:38 10/20/2024 US, duplex, venous, lower extremity completed [place] [facility] [place] [address], [place], [address], 10/21/2024 11:06:38 Procedure Notes None recorded. Medical Equipment None Reported. Allergies No known drug allergies Medications Name Sig Start Date Stop Date Status Note LastModified by Organization Details LastModified Time meloxicam 15 mg tablet TAKE 1 TABLET DAILY NEEDED FOR PAIN active Not Available Not Available No t Available FreeStyle Lancets 28 gauge USE TO TEST BLOOD SUGAR TWICE A DAY 12/21 completed Not Available Not Available Not Available aspirin 325 mg tablet,seymour yed release TAKE 1 TABLET BY MOUTH EVERY DAY 12/21 completed Not Available Not Available Not Available amlodipine 10 mg tablet TAKE 1 TABLET DAILY active Not Available Not Available No t Available irbesartan 150 mg tablet TAKE 1 TABLET DAILY active Not Available Not Available No t Available metformin ER 500 mg tablet,exte nded release 24 hr TAKE 1 TABLET BY MOUTH TWICE A DAY active Not Available Not Available No t Available Tylenol Extra Strength 500 mg tablet Take 2 tablets every 8 hours by oral route for 15 days. 12/21 completed Not Available Not Available Not Available calcipotrie ne 0.005 % topical ointment APPLY TWICE DAILY TO RASH ON HANDS active Not Available Not Available No t Available oxycodone 5 mg tablet TAKE 1 TABLET BY MOUTH EVERY 4 TO 6 HOURS FOR 5 DAYS NEEDED 12/21 completed Not Available Not Available Not Available meloxicam 12/21 completed Not Available Not Available Not Available irbesartan 12/21 completed Not Available Not Available Not Available lisinopril active Not Available Not Av ailable Not Available FreeStyle Lite Meter kit USE DIRECTED 12/21 completed Not Available Not Available Not Available FreeStyle Lite Strips USE TO TEST BLOOD SUGAR TWICE A DAY 12/21 completed Not Available Not Available Not Available Vitals Date Recorded Body height Body mass index (BMI) Body weight Provider Name and Address Organization Details Last Updated DateTime 05/17/2024 182.88 cm 42.7 kg/m2 124550.6 g MARK [facility] 05/17/2024 09:27:25 Date Recorded Body height Body mass index (BMI) Body weight Provider Name and Address Organization Details Last Updated DateTime 09/22/2024 182.88 cm 42.7 kg/m2 789165.6 g LAUREN BOL[facility] 09/22/2024 10:53:24 Date Recorded Body height Body mass index (BMI) Body weight Provider Name and Address Organization Details Last Updated DateTime 10/20/2024 182.88 cm 42.7 kg/m2 158098.6 g MARK [facility] 10/20/2024 14:45:57 Date Recorded Body height Body mass index (BMI) Body weight Provider Name and Address Organization Details Last Updated DateTime 12/21/2024 182.88 cm 42.7 kg/m2 596595.6 g MALLORY Spring'HEURCRISTIANE [facility] 12/21/2024 08:30:25 Social History Question Answer Notes LastModified by Organizat ion Details LastModified Time Tobacco Smoking Status Former Smoker MALLORY L'HEUREUCameron becker [facility] 12/21/2024 08:32:48 What Is Your Level Of Alcohol Consumption? None Information not available 12/21/2024 When Did You Quit Smoking? 1-5yearssinc elastcigaret te [email or web address] Information not available 12/21/2024 What Is Your Relationship Status? Information not available 12/21/2024 How Much Tobacco Do You Smoke? No Information not available 12/21/2024 Do You Use Any Illicit Or Recreational Drugs? No Information not available 12/21/2024 Do You Or Have You Ever Used Any Other Forms Of Tobacco Or Nicotine? No Information not available 12/21/2024 Sex: Unknown Functional Status None recorded. Mental Status None recorded. Family History Nothing Reported. Medical History Condition Response Allergies/Hayfever N Coronary Artery Disease N Anxiety/Depression N Breathing or lung disorders N Emphysema N Nerve Disorders N Thyroid Problems N COPD N Pacemaker N Anemia N Kidney/Bladder Problems N Vascular Disease N Heart Trouble N Heart Attack (MN) N Gastrointestinal Disease N Cholesterol N Diabetes N Autoimmune disease N Bleeding Disorder N Inflammatory Joint disease N Orthotics N Arthritis N Seizures/Epilepsy N Blood Clot N AIDS/HIV N Congestive Heart Failure (CHF) N Acid Reflux (GERD) N Cancer N Stroke N Asthma N Circulation Problems N Peripheral Vascular Disease N Sleep Apnea N Hepatitis N Heart Disease N Rheumatoid Arthritis N Arrhythmia N Pulmonary Embolism N Headaches N Fibromyalgia N Hypertension Y Osteoporosis N Past Encounters Encounter ID Performer Location Encounter Start Date Encounter Closed Date Diagnosis/Indication Diagnosis SNOMED-CT Code Diagnosis ICD10 Code Diagnosis Note [id number] MD Fede Padgett [address] [place] [address] 05/17/2024 09:17:07 06/10/2024 09:18:08 Ankle pain 236609954 M25.571 M25.572 Insertiona l Achilles tendinopathy 172970996 M67.711 [id number] KASEY Almonte [address] [place] [address] 09/22/2024 10:33:19 10/13/2024 10:13:26 History of orthopedic surgery [id number] 9101 Z98.760 [id number] MD OSIRIS Padgett [address], [place] [address] 10/20/2024 14:23:30 11/01/2024 07:05:39 Postoperative visit 125846205 Z48.89 Follow-up status 4245192 05 Z47.89 [id number] KASEY Smith [place] [address], [place] [address] 12/21/2024 08:17:45 01/03/2025 12:37:02 Disorder of Achilles tendon 788895770 M67.873 Health Concerns Section Related Observation LastModified by Organization Detai ls LastModified Time None Recorded Concern Status LastModified by Organization Details LastModified Time None Recorded Advance Directives Directive None Recorded Payers Encounter Date Sequence Insurance Name Policy Number Policy Stephens Covered Member ID Stephens Member ID Guarantor Name 05/17/2024 1 [facility] (POS) [id number] Jhonny Saravia [id number] Jhonny Saravia 09/22/2024 1 [facility] (POS) [id number] Jhonny Saravia [id number] Jhonny Saravia 10/20/2024 1 [facility] (PPO) Jhonny Saravia [id number] Jhonny Saravia Notes Date Note Type Note Provider Name and Address Organization Details Recorded Time 09/22/2024 text/html I am seeing the patient today under the supervision of Dr. Caceres who was available but who did not see the patient. HPI:_ Past family, medical, social history and review of systems has been reviewed, updated and signed by me and is located in the patient's chart. Examination: The patient is well appearing, alert and oriented x3 and in no acute distress. Inspection reveals nicely healing surgical incisions without signs of infection. Mild edema only. Range of motion is appropriately stiff. No dystrophic skin changes. Neurovascularly intact distally. Calf is supple and non-tender. Skin is without lesions. Impression/Plan: Postop, stable. Sutures removed today and steris placed. Elevation encouraged. Patient transitioned into _Follow-up arranged. [facility] speech recognition switch tender software was used to create portions of this document. An attempt at proofreading has been made to minimize errors. Please call for corrections. Radha Borrego PA-C [address], [place], [address], [facility] 11/30/2024 07:22:18 12/21/2024 text/html I am seeing the patient today under the supervision of Dr. Pino who was available but who did not see the patient. Surgeon: Dr. SotelouProcedure: Right insertional Achilles reconstruction, calcaneal exostectomy, and gastroc recessionDate of procedure: September 07, 2025 HPI: 44-year-old male returns today in follow-up status post Right insertional Achilles reconstruction, calcaneal exostectomy, and gastroc recession performed on September 07, 2025. Previous ultrasound was negative for evidence of any acute DVT. He has been previously referred to physical therapy. He has since transition to home exercise program and notes that he is doing well at this stage. Pain is improving but does have some intermittent soreness with prolonged walking. Jewel Kowalski PA-C [address], [place], [address], [facility] 12/21/2024 08:44:56
[2025-02-07] MEDS: iohexoL 350 MG/ML 100 ML INFUS..BTL 70 ML IV (16:09)
[2025-02-07 17:20] VITALS: BP 138/84; PULSE 69; RESP 20; TEMP 36.6; O2SAT 99
[2025-02-07 17:28] LABS: Alkaline Phosphatase 100 U/L (39-117)
[2025-02-08 05:52] LABS: Lyme Abs Screen <0.90 index
[2025-02-13 01:29] LABS: Babesia IgG <1:64 titer (<1:64); Babesia IgM <1:20 titer (<1:20)
[2025-02-13 14:53] LABS: A. Phagocytophilum Ab IgG <1:64 (<1:64); A. Phagocytophilum Ab IgM <1:20 (<1:20); E. Chaffeensis Ab IgG <1:64 (<1:64); E. Chaffeensis Ab IgM <1:20 (<1:20)
== END 2025-02-07 17:30 | disposition home or self-care (01) ==
PROVIDERS: Physician Assistant; Emergency Provider Emergency Medicine Emergency Medical Services; PCP Nurse Practitioner Family
DX: G43.909 Migraine, unspecified, not intractable, without status migrainosus (principal); M54.2 Cervicalgia; H53.8 Other visual disturbances; E11.9 Type 2 diabetes mellitus without complications; I10 Essential (primary) hypertension; F17.200 Nicotine dependence, unspecified, uncomplicated; Z79.899 Other long term (current) drug therapy
CPT/HCPCS: 36415; 70450; 70496; 70498; 72125; 80053; 84484; 85025; 85610; 85730; 86617; 86618; 86666; 86753; 93005; 99284; J1200; J1885; J2765; Q9967

== ENCOUNTER → 2025-02-07 12:53 | Outpatient (BNV) | payer OTHER, SELFPAY | PROVIDERS: Emergency Provider Emergency Medicine Emergency Medical Services; PCP Nurse Practitioner Family; Visit Provider Radiology Diagnostic Radiology | DX: R51.9 Headache, unspecified (principal); M54.2 Cervicalgia | CPT/HCPCS: 70450; 70496; 70498; 72125 ==

== ENCOUNTER → 2025-02-07 12:53 | Outpatient (BNV) | payer OTHER, SELFPAY | PROVIDERS: Emergency Provider Emergency Medicine Emergency Medical Services; PCP Nurse Practitioner Family; Visit Provider Internal Medicine | DX: R51.9 Headache, unspecified (principal) | CPT/HCPCS: 93010 ==

== ENCOUNTER 2025-02-23 11:30 | Outpatient (AMB) | payer OTHER, SELFPAY ==
--- OUTSIDE RECORDS SUMMARY | 2025-02-23 12:08 | XMS_ITS | Continuity of Care Document ---
Author Organization [facility] Address [address] [place] [address] Phone [phone] Social History Type Date Description Comments Sex Unknown Medical Devices Description No Information Available Encounters Description No Information Available Assessments Description No Information Available Plan of Treatment No Information Available Functional Status Description No Information Available Mental Status Description No Information Available Referrals Description No Information Available
--- NOTE | 2025-02-23 13:34 | AM.OFFWIN_ITS ---
Intake Vital Signs 02/23/25 13:36 Weight 317 lb BP 160/120 H Blood Pressure Location Lt brachial Position Sitting Pulse 98 Pulse Source Pulse Oximeter Pulse Oximetry (%) 97 Oxygen Delivery Method Room Air Intake Visit Reasons: EP Stiff neck [phone] Intake Note: Patient here for stiff neck, headaches and having issues concentrating. Patient Tobacco Use Status: Current everyday Tobacco user Allergies No Known Allergies Allergy (Verified 02/23/25 13:40) Do you need a note to return to daycare/school/sports/work: No HPI HPI Comments History of Present Illness Details 44 y/o Male patient who presents to the walk in clinic with c/o Stiff neck and headaches. He was last evaluated and treated at [facility] for similar problem on 02/[address] Cervical showed: CERVICAL SPINE: Osseous mineralization is normal. The vertebral bodies maintain normal height and alignment without evidence of fracture or subluxation. There is mild degenerative disc disease at the C5-6 and C6-7 levels with anterior osteophyte formation. Evaluation for disc pathology is limited by lack of intrathecal contrast material. Denies Vision or hearing changes. Denies injury or trauma to head or Neck. Denies nausea or vomiting. [facility] Medical History Achilles tendinosis of right ankle Psoriasis Surgical History H/O Achilles tendon repair No pertinent past surgical history Family History Father No problems noted. Mother No problems noted. Social History Household Members: Spouse Housing: House Patient Tobacco Use Status: Current everyday Tobacco user Tobacco use type: Smokeless Tobacco e-Cigarette/Vaping Use: Currently Using Second Hand Smoke Exposure: No service: No Current occupational status: employed Cognitive needs: No Hearing needs: No Vision needs: No Review of Systems Const All systems reviewed & are unremarkable except as noted in HPI and below Physical Exam Vital Signs: Last Vital Signs Pulse 98 02/23/25 13:36 BP 160/120 H 02/23/25 13:36 Pulse Ox 97 02/23/25 13:36 Oxygen Delivery Method Room Air 02/23/25 13:36 Const General: No comfortable Nutritional Appearance: obese morbidly obese Orientation/consciousness: patient oriented x3 HEENT Head: Yes normocephalic Neck Neck: Yes no lymphadenopathy and Yes other (ROM Neck limited due to pain) Resp Effort & Inspection: normal respiratory effort Cardio Heart sounds: S1 normal heart sound present and S2 normal heart sound present Neuro General: patient oriented x3, gait normal and moves all extremities Motor exam (neuro): 5/5 motor strength present throughout Psych Speech and movement: Normal speech and movement present Assessment & Plan Assessment & Plan (1) Cervical pain (neck): Code(s): M54.2 - Cervicalgia Plan: Discussed the case with PCP (Jered Huang). PCP to order Cervical MRA CTA cervical showed some Degenerative changes C5 - C7. Possibly the cause of the severe headaches. Small chance these are Migraine headaches - Exam/History does not support it. Ordered Small dose Prednisone per Pt's Request. Ordered Flexeril Medications: New prednisone 20 mg PO DAILY 10 tabs 0RF M54.2 - Cervicalgia Changed From cyclobenzaprine 10 mg PO BEDTIME 20 days PRN 20 tabs 0RF muscle spasm M54.2 - Cervicalgia To cyclobenzaprine 10 mg PO BEDTIME PRN 20 tabs 0RF muscle spasm M54.2 - Cervicalgia Discontinued ibuprofen Discontinued Reason: Patient Completed Course 400 mg PO Q6H PRN 20 tabs 0RF pain ondansetron Discontinued Reason: Patient Completed Course 4 mg PO TID 5 days PRN 10 tabs 0RF nausea and vomiting diclofenac sodium Discontinued Reason: Patient Completed Course 75 mg PO BID 30 days PRN 60 tabs 0RF pain indomethacin administer with food or milk Discontinued Reason: Patient Completed Course 50 mg PO BID 30 days 60 caps 0RF Coding Level of Care Code Est Pt Level 4 (41903) Diagnoses Cervical pain (neck) M54.2 Time Spent (min) 20
[2025-02-23 13:36] VITALS: BP 160/120; PULSE 98; O2SAT 97
== END 2025-02-23 14:33 | disposition home or self-care (01) ==
PROVIDERS: PCP Nurse Practitioner Family; Visit Provider Nurse Practitioner Family
DX: M54.2 Cervicalgia (principal)

== ENCOUNTER → 2025-02-23 11:30 | Outpatient (BNVA) | payer OTHER, SELFPAY | PROVIDERS: PCP Nurse Practitioner Family; Visit Provider Nurse Practitioner Family ==

== ENCOUNTER → 2025-03-02 19:16 | Outpatient (BNV) | payer OTHER, SELFPAY | PROVIDERS: PCP Nurse Practitioner Family; Visit Provider Specialist | DX: M54.2 Cervicalgia (principal) | CPT/HCPCS: 72141 ==

== ENCOUNTER 2025-03-02 19:17 | Outpatient (REF) | payer OTHER, SELFPAY ==
--- NOTE | ~2025-03-02 | MR_ITS ---
CLINICAL HISTORY: M54.2 - Cervicalgia MR cervical spine without gadolinium Comparison: None Normal vertebral body alignment. There is minimal broad-based degenerative disc bulge at C5-C6 and C6-C7 No acute fractures or pathologic bone lesions. No acute findings on limited view of the intracranial contents. No cervical fluid collections or masses. Cervical cord normal. IMPRESSION: No acute findings. This document has been electronically signed by: Mehdi Brito MD on 03/04/2025 10:13:53
--- OUTSIDE RECORDS SUMMARY | 2025-03-02 19:23 | XMS_ITS | Continuity of Care Document ---
Author Organization [facility] Address [address] [place] [address] Phone [phone] Social History Type Date Description Comments Sex Unknown Medical Devices Description No Information Available Encounters Description No Information Available Assessments Description No Information Available Plan of Treatment No Information Available Functional Status Description No Information Available Mental Status Description No Information Available Referrals Description No Information Available
== END 2025-03-02 19:18 | disposition home or self-care (01) ==
LOC: HO.MRI 19:17
PROVIDERS: PCP Nurse Practitioner Family; Visit Provider Nurse Practitioner Family
DX: M54.2 Cervicalgia (principal)
CPT/HCPCS: 72141

== ENCOUNTER 2025-06-16 08:02 | Outpatient (REF) | payer OTHER, SELFPAY ==
--- OUTSIDE RECORDS SUMMARY | 2025-06-16 08:24 | XMS_ITS | Continuity of Care Document ---
Author Organization [facility] Address [address] [place] [address] Phone [phone] Social History Type Date Description Comments Sex Male Sex Unknown Medical Devices Description No Information Available Encounters Description No Information Available Assessments Description No Information Available Plan of Treatment No Information Available Functional Status Description No Information Available Mental Status Description No Information Available Referrals Description No Information Available
--- OUTSIDE RECORDS SUMMARY | 2025-06-16 08:24 | XMS_ITS | Clinical Summary ---
Author Organization [facility] Address [address] [place] [phone] Phone Care Team Providers Care Director [employer] Name Role Phone Jered Julian MANAGER OF PMO Primary Care Provider + Allergies No known active allergies Medications amLODIPine (NORVASC) 10 MG tablet Take 10 mg by mouth daily. Active Social History Tobacco Use Types Packs/Day Years Used Date Smoking Tobacco: Former Smokeless Tobacco: Never Alcohol Use Standard Drinks/Week Comments Never 0 (1 standard drink = 0.6 oz pur e alcohol) Education Answer Date Recorded Are you interested in more education? Not on danilo e 01/30/2023 Are you concerned about learning? Not on file 01/30/2023 No 01/30/2023 No 01/30/2023 Digital Access Answer Date Recorded No 02/28/2023 No 02/28/2023 No 02/28/2023 Reliable internet access at home? Not on file 02/28/2023 Device with a working camera? Not on file Sex and Gender Information Value Date Recorded Sex Assigned at Male 04/07/2019 2:05 PM EDT Legal Sex Male 1:51 PM EDT Gender Identity Male 04/07/2019 2:05 PM EDT Sexual Orientation Not on file Last Filed Vital Signs Vital Sign Reading Time Taken Comments Blood Pressure 153/99 06/08/2021 2:55 AM EDT Pulse 88 06/08/2021 2:55 AM EDT Temperature 36.6 C (97.9 F) 06/08/2021 2:55 AM EDT Respiratory Rate 18 06/08/2021 2:55 AM EDT Oxygen Saturation 98% 06/08/2021 2:55 AM EDT Inhaled Oxygen Concentration - - Weight 145.2 kg (320 lb) 06/08/2021 2:55 AM EDT Height 182.9 cm (6') 04/07/2019 2:04 PM EDT Body Mass Index 43.4 04/07/2019 2:04 PM EDT Plan of Treatment Health Maintenance Due Date Last Done Comments LIPID PANEL 1980 DEPRESSION SCREENING 1992 SMOKING Hx and SMOKELESS TOBACCO SCREENING 1993 HEPATITIS C SCREENING 1998 HIV ONE-TIME SCREENING (18-6 5 YEARS) 1998 INFLUENZA VACCINE (#1) 2025 COVID-19 VACCINE (2 - 2024-2 6 season) 2025 06/26/2021 Adult Td,Tdap Booster 12/05/2027 12/04/2017 , 10/05/2013 HEPATITIS A VACCINES Aged Out No long er eligible based on patient's age to complete this topic HIB VACCINES Aged Out No longer eligi ble based on patient's age to complete this topic MENINGOCOCCAL VACCINES (ACWY) Aged Out No longer eligible based on patient's age to complete this topic MENINGOCOCCAL VACCINES (B) Aged Out N o longer eligible based on patient's age to complete this topic PNEUMOCOCCAL VACCINES (0-49 years) Aged Out No longer eligible b ased on patient's age to complete this topic Medical Devices Not on file [place] [address] [email or web address] [facility] PPO POS EPO [email or web address] PPO [facility] POS EPO [employer] PPO [facility] POS EPO S[employer] PPO [facility] POS EPO [employer] PPO [facility] POS EPO [email or web address] PPO POS EPO [email or web address] PPO [facility] POS EPO [email or web address] PPO POS EPO [email or web address] PPO [facility] POS EPO Care Teams Director [employer] Relationship Specialty Start Date End Date Jered Julian NP [address] [place] [address] PCP - General Family Medicine 04/07/19 Additional Source Comments The information contained in this document represents components of the legal health record. It is not the complete legal health record.[facility]
[2025-06-16 10:25] LABS: MANUAL DIFF FLAG NO
[2025-06-16 10:27] LABS: Hematocrit 43.1 % (42.0-52.0); Hemoglobin 15.1 g/dl (14.0-18.0); Imm Gran Abs Auto 0.04 X10*3/uL (0.00-0.03); Imm Gran Pct Auto 0.4 % (0.0-0.4); Lymphocytes Absolute Auto 1.7 X10*3/uL (1.2-4.9); Mean Corpuscular HGB Conc 35.0 g/dl (31.0-36.0); Mean Corpuscular Hemoglobin 29.7 pg (27.0-33.0); Mean Corpuscular Volume 84.8 fL (80.0-98.0); NRBC Abs Auto 0.000 X10*3/uL (0.0-0.012); NRBC Pct Auto 0.0 /100WBC (0.0-0.2); Platelet Count 234 X10*3/uL (160-400); Red Blood Count 5.08 X10*6/uL (4.60-5.80); White Blood Count 11.0 X10*3/uL (4.8-10.8)
[2025-06-16 11:44] LABS: Alanine Aminotransferase 22 U/L (0-40); Albumin Level 4.7 g/dL (3.5-5.0); Alkaline Phosphatase 95 U/L (39-117); Anion Gap 15 (12-20); Aspartate Amino Transferase 19 U/L (5-37); Blood Urea Nitrogen 16 mg/dL (9-16); Calcium 9.1 mg/dL (8.4-10.2); Carbon Dioxide 26 mmol/L (22-29); Chloride 105 mmol/L (96-108); Estimated Glomerular Filt Rate > 60; Potassium 3.7 mmol/L (3.3-5.1); Sodium 142 mmol/L (135-145); Total Protein 7.8 g/dL (6.5-8.0)
[2025-06-17 08:54] LABS: HBS Num1 24.09 mIU/mL (0-7.99); HBc Num1 0.09 S/CO (0.00-0.79); HBsAGNum1 0.54 S/CO (0.00-0.99); Hepatitis B Surface Antigen Negative (Negative); ~HepC Num1 0.13 S/CO (0.00-0.79); ~Hepatitis B Surface Antibody REACTIVE (Nonreactive); ~Hepatitis C Antibody Nonreactive (Nonreactive)
[2025-06-19 22:23] LABS: TS Negative Control Passed; TS Panel A 0; TS Panel B 0; TS Positive Control Passed; TSpotTB Negative (Negative)
== END 2025-06-16 08:03 | disposition home or self-care (01) ==
LOC: HO.HMGCLDS 08:02
PROVIDERS: PCP Nurse Practitioner Family
DX: Z79.899 Other long term (current) drug therapy (principal)
CPT/HCPCS: 36415; 80048; 80076; 85025; 86481; 86704; 86706; 86803; 87340

== ENCOUNTER 2025-06-20 07:14 | Outpatient (AMB) | payer OTHER, SELFPAY ==
--- OUTSIDE RECORDS SUMMARY | 2025-06-20 07:16 | XMS_ITS | Clinical Summary ---
Author Organization [facility] Address [address] [place] [address] Phone Care Team Providers Care Bobtail Driver Name Role Phone Jered Julian MANAGER OF RECRUITING Primary Care Provider + Allergies No known [...] topic Medical Devices Not on file [place] [address] [place] [address] [email or web address] [facility] PPO POS EPO [employer] PPO [facility] POS EPO [employer] [facility] POS EPO [place] [employer] [facility] POS EPO [place] [employer] [facility] POS EPO [employer] PPO POS EPO [employer] PPO [facility] POS EPO [employer] PPO POS EPO [employer] PPO [facility] POS EPO Care Teams Bobtail Driver Relationship Specialty Start Date End Date Jered Julian NP [address] [place] [address] PCP - General Family Medicine 04/07/19 Additional Source Comments The information contained in this document represents components of the legal health record. It is not the complete legal health record.[facility]
--- OUTSIDE RECORDS SUMMARY | 2025-06-20 07:16 | XMS_ITS | Continuity of Care Document ---
Author Organization [facility] Address [address] [place] [address] Phone [phone] Social History Type Date Description Comments Sex Male Sex Unknown Medical Devices Description No Information Available Encounters Description No Information Available Assessments Description No Information Available Plan of Treatment No Information Available Functional Status Description No Information Available Mental Status Description No Information Available Referrals Description No Information Available
[2025-06-20 07:18] VITALS: BP 138/100; PULSE 97; RESP 16; TEMP 36.7; O2SAT 98; BMI 40.2
--- NOTE | 2025-06-20 07:18 | MHC.OFFWIV ---
Intake Vital Signs 06/20/25 07:18 Height 6 ft 1 in Weight 305 lb BMI 40.2 BP 138/100 H Blood Pressure Location Rt brachial Position Sitting Respiration 16 Pulse 97 Pulse Source Pulse Oximeter Temp 98.0 F Temp Source Oral Pulse Oximetry (%) 98 Oxygen Delivery Method Room Air Intake Visit Reasons: EP Covid symptoms?? Intake Note: Pt is here today c/o coughing up phelgm, H/A x7days: Pt states tested positive for COVID x5days ago Patient Tobacco Use Status: Former Tobacco user Allergies No Known Allergies Allergy (Verified 06/20/25 07:18) HPI HPI Comments History of Present Illness Details History - The patient is a 44-year-old male presenting with symptoms of a viral infection x 8 days after flying home from [place] - Symptoms began with cough and congestion, evolving into a persistent cough and headache, with shortness of breath noted particularly at night or when walking. Also, c/o left ear blockage feeling like underwater. - No history of asthma or COPD, and the patient does not smoke or vape. - Reports subjective fever without associated chills or gastrointestinal symptoms. - Earwax buildup noted, which the patient attempted to clean. Sinuses did have pressure but better now. - Tested positive with an old test for covid on 06/15 Physical Exam General: Cooperative, healthy appearing, comfortable and no acute distress Orientation/consciousness: Patient oriented x3 Limitations: No limitations Head: Normal to inspection Ears: Hearing grossly normal bilaterally, external ears normal and TM's left with cerumen, right normal. Nose: Normal external nose present, Normal nares present and No nasal discharge present Face and sinus: Normal facial exam and Yes sinuses nontender, Mouth: Normal oral and palatal mucosa present and moist mucous membranes Throat: Yes tonsils normal, Yes uvula midline. Posterior oropharynx erythema, no exudates Eyes: Appearance normal, both eyes and all related structures Neck: Normal visual inspection, full ROM Respiratory: Clear to auscultation bilaterally. Normal respiratory effort, able to speak in complete sentences, not actively coughing, no respiratory distress, not tachypneic, no tripod positioning and no use of accessory muscles Cardiovascular: Regular rate and rhythm. Normal S1 and S2 Skin: No rashes or lesions noted Neuro: Patient oriented x3 Extremities: Normal to inspection and Yes no clubbing, cyanosis or edema [facility] Medical History Achilles tendinosis of right ankle Psoriasis Surgical History H/O Achilles tendon repair No pertinent past surgical history Family History Father No problems noted. Mother No problems noted. Social History Household Members: Spouse Housing: House Patient Tobacco Use Status: Former Tobacco user Tobacco use type: Smokeless Tobacco e-Cigarette/Vaping Use: Currently Using Second Hand Smoke Exposure: No service: No Current occupational status: employed Cognitive needs: No Hearing needs: No Vision needs: No Review of Systems Const All systems reviewed & are unremarkable except as noted in HPI and below Physical Exam Vital Signs: Last Vital Signs Temp 98.0 F 06/20/25 07:18 Pulse 97 06/20/25 07:18 Resp 16 06/20/25 07:18 BP 138/100 H 06/20/25 07:18 Pulse Ox 98 06/20/25 07:18 Oxygen Delivery Method Room Air 06/20/25 07:18 BMI result Body Mass Index 40.2 Assessment & Plan Assessment & Plan (1) URI, acute: Code(s): J06.9 - Acute upper respiratory infection, unspecified Plan: Plan Patient was informed and verbally consented to the use of an ambient scribe for clinic note documentation during this visit. VSS, pt well appearing and PE unremarkable Viral Infection - Testing for influenza, COVID-19, and RSV is planned due to the current viral prevalence. - Benzonatate is prescribed for nighttime cough suppression. - Albuterol inhaler is prescribed to manage shortness of breath and potential bronchospasm. Medications: New benzonatate 200 mg PO BEDTIME PRN 10 caps 0RF cough albuterol sulfate 90 mcg/actuation 2 puffs inhalation Q6H PRN 8.5 grams 0RF shortness of breath or wheezing or cough Coding Level of Care Code Est Pt Level 3 (25226) Diagnoses URI, acute J06.9
== END 2025-06-20 09:49 | disposition home or self-care (01) ==
PROVIDERS: PCP Nurse Practitioner Family; Visit Provider Physician Assistant
DX: J06.9 Acute upper respiratory infection, unspecified (principal)

== ENCOUNTER 2025-06-20 07:14 | Outpatient (REF) | payer OTHER, SELFPAY ==
[2025-06-20 16:02] LABS: Chlamydia pneumoniae PCR Not Detected (Not Detect.); Coronavirus 229E PCR Not Detected (Not Detect.); Coronavirus HKU1 PCR Not Detected (Not Detect.); Coronavirus NL63 PCR Not Detected (Not Detect.); Coronavirus OC43 PCR Not Detected (Not Detect.); RSV PCR Not Detected (Not Detect.); Rhino/Enterovirus PCR Not Detected (Not Detect.)
[2025-06-20 16:05] LABS: SARS-CoV-2 PCR Not Detected (Not Detect.)
[2025-06-20 16:06] LABS: Influenza A H1 PCR Not Detected (Not Detect.); Influenza A H1-2009 PCR Not Detected (Not Detect.); Influenza A H3 PCR Not Detected (Not Detect.)
--- OUTSIDE RECORDS SUMMARY | 2025-06-20 17:35 | XMS_ITS | Continuity of Care Document ---
Author Organization [facility] Address [address] [place] [address] Phone [phone] Social History Type Date Description Comments Sex Male Sex Unknown Medical Devices Description No Information Available Encounters Description No Information Available Assessments Description No Information Available Plan of Treatment No Information Available Functional Status Description No Information Available Mental Status Description No Information Available Referrals Description No Information Available
--- OUTSIDE RECORDS SUMMARY | 2025-06-20 17:35 | XMS_ITS | Clinical Summary ---
Author Organization [facility] Address [address] [facility] [address] [place] [phone] Phone Care Team Providers Care Parking Control Officer Name Role Phone Jered Julian HATCHERY MAN Primary Care Provider + Allergies No known [...] topic Medical Devices Not on file [place] [address] [address] [employer] [facility] PPO POS EPO [employer] PPO [facility] POS EPO [place] [employer] PPO [facility] POS EPO [place] [employer] PPO [facility] POS EPO [place] [employer] PPO [facility] POS EPO [employer] PPO POS EPO [employer] PPO [facility] POS EPO [employer] PPO POS EPO [employer] PPO [facility] POS EPO Care Teams Parking Control Officer Relationship Specialty Start Date End Date Jered Julian NP 1961 [facility] [place] [address] PCP - General Family Medicine 04/07/19 Additional Source Comments The information contained in this document represents components of the legal health record. It is not the complete legal health record.[facility]
== END 2025-06-20 07:15 | disposition home or self-care (01) ==
LOC: HO.LAB 07:14
PROVIDERS: PCP Nurse Practitioner Family; Visit Provider Physician Assistant
DX: J06.9 Acute upper respiratory infection, unspecified (principal); R05.3 Chronic cough; R51.9 Headache, unspecified; R06.02 Shortness of breath; R50.9 Fever, unspecified; R09.89 Other specified symptoms and signs involving the circulatory and respiratory systems; Z86.16 Personal history of COVID-19; Z87.891 Personal history of nicotine dependence
CPT/HCPCS: 87633